=== PATIENT | female | born 1955 | race Caucasian/White ===

== ENCOUNTER 2018-08-04 19:05 | Emergency (ER) | payer MEDICARE, OTHER ==
--- OUTSIDE RECORDS SUMMARY | 2018-08-04 19:07 | XMS REPORT | Clinical Summary ---
:1955 Author Organization [facility] Address [address] [place] [address] Care Team Providers Name Role Phone Vinod Robysri Molina Primary Care Provider Unavailable Allergies Active Allergy Reactions Severity Noted Date Comments Amitriptyline Other (See Comments) 08/14/2016 Gets really depressed Gabapentin Other (See Comments) 08/14/2016 Gets really depressed Medications Medication Sig Dispensed Refills Start Date End Date Status acetaminophen (TYLENOL) Take 650 mg by 0 Active 325 MG tablet mouth every 6 (six) hours as needed for Pain. Active Problems Problem Noted Date Myelopathy 08/24/2016 Cervical spinal stenosis 08/24/2016 Pre-op testing 08/24/2016 Social History Tobacco Use Types Packs/Day Years Used Date Former Smoker 1 14 Quit: 08/30/2015 Alcohol Use Drinks/Week oz/Week Comments No Sex Assigned at Date Recorded Not on file Job Start Date Occupation Industry Not on file Not on file Not on file Travel History Travel Start Travel End No recent travel history available. Last Filed Vital Signs Not on file Plan of Treatment Not on file Implants Implanted Type Area Beef Ribber Device Shelf Model / Serial Identifier Expiration / Lot Date Matrix Floseal Hemo W/O Ndl 10 [id number] - [id number] Cement/Fi N/A: Spine SCHOFIELD:BIOSCI 12/14/2017 [id number] / Implanted: Qty: 2 on 08/24/2016 by Abdullahi Carrizales MD ller/Adhe Cervical / sive [id number] Optium Dbm Putty Spine N/A: Spine LIFENET 03/06/2019 [id number] / Implanted: Qty: 1 on 08/24/2016 by Boris Barry MD Cervical / [id number] Spacer Vert [id number] - [id number] Spine N/A: Spine ORTHOFIX 12/14 [id number] / Implanted: Qty: 1 on 08/24/2016 by Boris Barry MD Cervical INTL: ORTHOFIX / [id number] Spacer Vert [id number] - [id number] Spine N/A: Spine ORTHOFIX 2020 [id number] / Implanted: Qty: 1 on 08/24/2016 by Borsi Barry MD Cervical INTL: ORTHOFIX / [id number] Plt Aviator 30mm Lev2 [id number] - [id number] Spine N/A: Spine JARED:STRYKE [id number] / Implanted: Qty: 1 on 08/24/2016 by Boris Barry MD Cervical R SPINE / [id number] Vsd Screw Spine N/A: Spine JARED [id number] / Implanted: Qty: 1 on 08/24/2016 by Boris Barry MD Cervical / [id number] Tissue Nucell Med W/Matrix Nc-1001 - [id number] Tissue N/A: Spine NUTECH MED 01/16/2017 NC-1001 / Implanted: Qty: 1 on 08/24/2016 by Boris Barry MD Graft/Sub Cervical / stitute [id number] Aero Cervical Cage System N/A: Spine JARED 11/27/2020 [id number] / Implanted: Qty: 1 on 08/24/2016 by Boris Barry MD Cervical / [id number] Results Not on fileafter 08/03/2017 Insurance Payer Benefit Plan / Subscriber ID Type Phone Address Group BLUE CROSS/BLUE BCBS ADV HMO xxxxxxxxxxxx [phone] [address] EXCHANGE [address] [place] [address] MEDICAID - MEDICAID [id number] xxxxxxxxxxxx Medicaid MEDICAID [facility] CHOICE Contracted CARE [place] (Home) [place] [address] Advance Directives For more information, please contact:[place] [address] [address] [place] [phone] Code Status Date Activated Date Inactivated Comments Full Code 08/24/2016 10:50 AM 08/26/2016 1:00 PM This code status was determined by: Patient
[2018-08-04] MEDS ORDERED: AZITHROMYCIN 250 MG TAB ONE (20:38)
[2018-08-04] MEDS ORDERED: HYDROCODONE/APAP 10/325 TAB ONE (20:39)
[2018-08-04] MEDS ORDERED: AMOX/K CLAV 875 MG TAB ONE (20:39)
[2018-08-04 21:13] LABS: Absolute Lymphocytes (CBC) 1.9 K/uL (0.7-4.9); Absolute Monocytes 0.5 K/uL (0.1-1.3); Absolute Neutrophil 7.6 K/uL (1.8-8.0); Basophils % 0.5 % (0-1.3); Hematocrit 41.5 % (36.0-45.0); Lymphocytes % 18.3 % (15.3-44.8); MCH 28.8 pg (27.0-35.0); MCV 85.4 fL (80-100); Monocytes % 5.2 % (3.3-12.3); RBC Red Blood Cell Count 4.85 M/uL (3.86-4.86)
[2018-08-04 21:25] LABS: Potassium 3.5 mmol/L (3.5-5.1)
--- NOTE | 2018-08-04 21:55 | EDPHYS ---
Physician Documentation [facility] Name: Yolande Welch Age: 63 yrs Sex: Female : 1955 Arrival Date: 08/04/2018 Time: 19:08 Bed 11 Private MD: ANANDA ZENG ED Physician Ramses Ellis HPI: 08/04 20:23 This 63 yrs old Female presents to ER via Ambulatory with complaints of Cat jmm Bite. 20:23 The patient was bitten on the left hand. Onset: The symptoms/episode began/occurred jmm acutely, this morning. Secondary to the bite the patient reports an abrasion. Associated signs and symptoms: Pertinent positives: erythema at site. Patient states her cat scratched her this morning with increased pain and swelling beginning this evening. Patient denies fever. . Historical: - Allergies: 19:39 Strawberries; wh - Home Meds: 19:39 None [Active]; wh - PMHx: 19:39 Spinal cord injury; wh - PSHx: 19:39 Back surgery; wh - Immunization history:: Adult Immunizations not up to date, Last tetanus immunization: < 10 years ago. - Social history:: Smoking status: Patient/guardian denies using tobacco, the patient reports quitting approximately 4 years ago. - Ebola Screening: : Patient negative for fever greater than or equal to 101.5 degrees Fahrenheit, and additional compatible Ebola Virus Disease symptoms Patient denies exposure to infectious person. ROS: 20:23 Constitutional: Negative for fever, chills, and weight loss, Cardiovascular: Negative jmm for chest pain, palpitations, and edema, Respiratory: Negative for shortness of breath, cough, wheezing, and pleuritic chest pain. 20:23 MS/extremity: Positive for erythema, pain. 20:23 Skin: Positive for erythema, swelling. 20:23 All other systems are negative. Exam: 20:23 Constitutional: This is a well developed, well nourished patient who is awake, alert, jmm and in no acute distress. Head/Face: atraumatic. Eyes: EOMI, no conjunctival erythema appreciated ENT: Moist Mucus Membranes Neck: Trachea midline, Supple Chest/axilla: Normal chest wall appearance and motion. Cardiovascular: Regular rate and rhythm. No edema appreciated Respiratory: Normal respirations, no respiratory distress appreciated Abdomen/GI: Non distended, soft Back: Normal ROM 20:23 Musculoskeletal/extremity: FROM appreciated to the left hand, Compartments are soft, < 2 sec dist cap refill, NVI, full radial pulse. 20:23 Skin: multiple abrasions noted to the dorsum of the left hand with erythema, TTP. No purulent drainage is appreciated. . 20:23 Neuro: Orientation: is normal, Mentation: is normal, Memory: is normal, Gait: is steady, at a normal pace. 20:23 Psych: Behavior/mood is pleasant, cooperative. Vital Signs: 19:36 BP 115 / 70; Pulse 86; Resp 18; Temp 98.4; wh 22:12 BP 107 / 85; Pulse 82; Resp 17; wh MDM: 20:22 Patient medically screened. [facility] 21:53 Data reviewed: vital signs, nurses notes. [facility] 22:05 Data reviewed: lab test result(s). [facility] 22:05 Counseling: I had a detailed discussion with the patient and/or guardian regarding: the [facility] historical points, exam findings, and any diagnostic results supporting the discharge/admit diagnosis, lab results, radiology results, the need for outpatient follow up, to return to the emergency department if symptoms worsen or persist or if there are any questions or concerns that arise at home. ED course: Labs unremarkable. Patient advised to follow up with PCP or hand in 1 to days. Given strict return precautions. Patient understood and agrees with the plan of care. . 08/04 20:23 Order name: CBC with Diff [facility] 08/04 20:23 Order name: BMP [facility] 08/04 20:23 Order name: Procalcitonin [facility] 08/04 21:25 Order name: CBC with Automated Diff; Complete Time: 21:27 [facility] 08/04 21:26 Order name: Basic Metabolic Panel; Complete Time: 21:27 [facility] 08/04 21:46 Order name: Procalcitonin; Complete Time: 21:49 [facility] 08/04 20:23 Order name: Saline Lock; Complete Time: 20:41 [facility] Administered Medications: 20:41 Drug: Augmentin 875 mg Route: PO; 21:18 Follow up: Response: No adverse reaction 20:41 Drug: AZITHromycin 500 mg Route: PO; 21:18 Follow up: Response: No adverse reaction 20:41 Drug: [place] 10 mg-325 mg 1 tabs Route: PO; 21:17 Follow up: Response: No adverse reaction 22:04 Drug: Tetanus-Diphtheria Toxoid Adult 0.5 ml {Digitizer Operator: [employer]. Exp: 10/04/2020. Lot #: [id number]. } Route: IM; Site: right deltoid; 22:12 Follow up: Response: No adverse reaction Disposition: 08/05 05:42 Co-signature as Attending Physician, Ramses Ellis MD I agree with the assessment and tw4 plan of care. Disposition: 08/04/18 21:54 Discharged to Home. Impression: Cat scratch. - Condition is Stable. - Discharge Instructions: Animal Bite, [id number]. - Prescriptions for Augmentin 875- 125 mg Oral Tablet - take 1 tablet by ORAL route every 12 hours for 10 days; 20 tablet. Ultracet 37.5- 325 mg Oral Tablet - take 1 tablet by ORAL route every 6 hours - for up to 5 days; do not exceed 8 tablets per day.; 12 tablet. Zithromax Z- Shine 250 mg Oral Tablet - take 1 tablet by ORAL route as directed for 5 days Day 1 - take two (2) tablets one time. Day 2, 3, 4 , 5 take one (1) tablet once daily.; 6 tablet. - Medication Reconciliation Form, Thank You Letter, Antibiotic Education, Prescription Opioid Use form. - Follow up: Tremayne Wren MD; When: 1 - 2 days; Reason: Recheck today's complaints, Continuance of care, Re-evaluation by your physician. Signatures: Dispatcher [employer] EDMS Kevin Canela PA PA jmm Habalo, Winsy Ramses Ellis MD MD tw4 Corrections: (The following items were deleted from the chart) 08/04 22:18 21:54 08/04/2018 21:54 Discharged to Home. Impression: Cat scratch. Condition is Stable. Forms are Medication Reconciliation Form, Thank You Letter, Antibiotic Education, Prescription Opioid Use. Follow up: Tremayne Wren; When: 1 - 2 days; Reason: Recheck today's complaints, Continuance of care, Re-evaluation by your physician. abby 08/05 02:38 08/04 21:53 Counseling: I had a detailed discussion with the patient and/or guardian abby regarding: the presence of at least one elevated blood pressure reading (>120/80) during this emergency department visit, lab results, the need for outpatient follow up, to return to the emergency department if symptoms worsen or persist or if there are any questions or concerns that arise at home, abby
--- NOTE | 2018-08-04 21:55 | ER ---
Nurse's Notes [facility] Name: Yolande Welch Age: 63 yrs Sex: Female : 1955 Arrival Date: 08/04/2018 Time: 19:08 Bed 11 Private MD: ANANDA ZENG Diagnosis: Cat scratch Presentation: 08/04 19:31 Presenting complaint: Patient states: states she was trying to reach for her cat that wh got stuck on her wheelchair when the cat scratch her hand multiple times this morning. Pt states cat had rabies shot. Pt last tetanus shot was in the 70s. Pt C/O throbbing pain in L hand from scratches 04/25. Transition of care: patient was not received from another setting of care. Onset of symptoms was August 04, 2018. Risk Assessment: Do you want to hurt yourself or someone else? Patient reports no desire to harm self or others. Initial Sepsis Screen: Does the patient meet any 2 criteria? No. Patient's initial sepsis screen is negative. Does the patient have a suspected source of infection? No. Patient's initial sepsis screen is negative. Care prior to arrival: None. 19:31 Method Of Arrival: Ambulatory 19:31 Acuity: ELLIE 3 Triage Assessment: 19:37 Bite description: NOt animal bite as stated by Pt. General: Appears in no apparent distress. Behavior is calm, cooperative, appropriate for age. Pain: Complains of pain in left hand Pain currently is 8 out of 10 on a pain scale. Quality of pain is described as throbbing, Pain began this morning. 20:44 Bite description: bite sustained to Pt not bitten by act but scratched by animal information: vaccination(s) is current. Historical: - Allergies: 19:39 Strawberries; - Home Meds: 19:39 None [Active]; - PMHx: 19:39 Spinal cord injury; - PSHx: 19:39 Back surgery; - Immunization history:: Adult Immunizations not up to date, Last tetanus immunization: < 10 years ago. - Social history:: Smoking status: Patient/guardian denies using tobacco, the patient reports quitting approximately 4 years ago. - Ebola Screening: : Patient negative for fever greater than or equal to 101.5 degrees Fahrenheit, and additional compatible Ebola Virus Disease symptoms Patient denies exposure to infectious person. Screenin:36 Abuse screen: Denies threats or abuse. Denies injuries from another. Nutritional wh screening: No deficits noted. Tuberculosis screening: No symptoms or risk factors identified. Fall Risk None identified. Assessment: 20:44 Derm: Skin is intact, Skin is pink, warm \T\ dry. normal. wh 21:12 General: Appears in no apparent distress. Behavior is calm, cooperative, appropriate wh for age. Pain: Complains of pain in left hand. 21:13 Pain: Complains of pain in left hand Pain currently is 8 out of 10 on a pain scale. wh Quality of pain is described as throbbing. 21:13 Neuro: Level of Consciousness is awake, alert, obeys commands, Oriented to person, wh place, time, situation, Appropriate for age. Cardiovascular: Heart tones S1 S2 Capillary refill < 3 seconds. Respiratory: Airway is patent Respiratory effort is even, unlabored, Respiratory pattern is regular, symmetrical, Breath sounds are clear bilaterally. GI: Abdomen is flat, non-distended. : No signs and/or symptoms were reported regarding the genitourinary system. EENT: No signs and/or symptoms were reported regarding the EENT system. Derm: Skin is intact, Skin is pink, warm \T\ dry. normal, Reports scratches on L hand from pet cat. Musculoskeletal: Pt uses a wheelchair. Vital Signs: 19:36 BP 115 / 70; Pulse 86; Resp 18; Temp 98.4; wh 22:12 BP 107 / 85; Pulse 82; Resp 17; wh ED Course: 19:08 Patient arrived in ED. am2 19:09 ANANDA ZENG is Private Physician. am2 19:24 [facility] 19:24 Ramses Ellis MD is Attending Physician. [facility] 19:31 Ezio Bradley is Primary Nurse. wh 19:34 Triage completed. wh 19:38 Arm band placed on right wrist. wh 19:40 Patient has correct armband on for positive identification. Call light in reach. Pulse wh ox on. NIBP on. 20:44 Inserted saline lock: 22 gauge in right antecubital area, using aseptic technique. Blood collected. 21:53 Tremayne Wren MD is Referral Physician. [facility] 22:11 No provider procedures requiring assistance completed. IV discontinued, intact, bleeding controlled, No redness/swelling at site. Administered Medications: 20:41 Drug: Augmentin 875 mg Route: PO; 21:18 Follow up: Response: No adverse reaction 20:41 Drug: AZITHromycin 500 mg Route: PO; 21:18 Follow up: Response: No adverse reaction 20:41 Drug: [place] 10 mg-325 mg 1 tabs Route: PO; 21:17 Follow up: Response: No adverse reaction 22:04 Drug: Tetanus-Diphtheria Toxoid Adult 0.5 ml {Machine Binding Folder: [employer]. Exp: 10/04/2020. Lot #: [id number]. } Route: IM; Site: right deltoid; 22:12 Follow up: Response: No adverse reaction Outcome: 21:54 Discharge ordered by . abby 22:11 Discharged to home ambulatory, with family. 22:11 Condition: improved 22:11 Discharge instructions given to patient, Instructed on discharge instructions, follow up and referral plans. no drinking with medication, no driving heavy equipment, medication usage, wound care, POC Animal bite/scratch Demonstrated understanding of instructions, follow-up care, medications, wound care, POC Prescriptions given X 3. 22:18 Patient left the ED. Signatures: Kevin Canela PA PA jmm Moreno, Amanda am2 Habalo, Winsy Corrections: (The following items were deleted from the chart) 22:18 21:13 Musculoskeletal: Range of motion: intact in all extremities, [facility] 22:26 19:31 Acuity: ELLIE 5 [facility]
[2018-08-04] MEDS ORDERED: TETANUS & DIPHTHERIA TOX,ADULT 0.5 ML VIAL ONE (22:03)
== END 2018-08-04 22:18 | disposition home or self-care (01) ==
LOC: ER 19:05
DX: S60.572A Other superficial bite of hand of left hand, initial encounter (principal); W55.03XA Scratched by cat, initial encounter; Y93.9 Activity, unspecified; Y92.9 Unspecified place or not applicable; Z23 Encounter for immunization; Z91.018 Allergy to other foods
CPT/HCPCS: 36415; 80048; 84145; 85025; 90714; 99284

== ENCOUNTER 2020-01-14 16:54 | Emergency (ER) | payer MEDICARE ==
[2020-01-14] MEDS ORDERED: ONDANSETRON 4 MG/2 ML VIAL ONE (18:03)
[2020-01-14] MEDS ORDERED: NA CHLORIDE 0.9% 1,000 ML ONE (18:03)
[2020-01-14] MEDS ORDERED: MORPHINE 2 MG/ML SYR ONE (18:03)
--- NOTE | 2020-01-14 18:07 | RAD REPORT ---
EXAM DESCRIPTION: RAD - Chest Single View - 01/14/2020 6:03 pm CLINICAL HISTORY: Abdominal distention;Pain Chest pain. COMPARISON: No comparisons FINDINGS: Portable technique limits examination quality. The lungs are grossly clear. The heart is normal in size. No displaced fractures. Cervical spine hard soliman plate. IMPRESSION: No acute intrathoracic process suspected.
[2020-01-14 18:21] LABS: ALT/SGPT 27 U/L (12-78); AST/SGOT 19 U/L (15-37); Albumin 3.7 g/dL (3.4-5.0); Alkaline Phosphatase 100 U/L (45-117); BUN Blood Urea Nitrogen 7 mg/dL (7-18); Bicarbonate 25 mmol/L (21-32); Bilirubin Direct < 0.1 mg/dL (0-0.2); Bilirubin Total 0.5 mg/dL (0.2-1.0); Glucose Level 107 mg/dL (74-106); Lipase 114 U/L (73-393); Magnesium 1.9 mg/dL (1.8-2.4); NT PRO-BNP 46 pg/mL (<125); Potassium 3.7 mmol/L (3.5-5.1); Protein, Total 7.4 g/dL (6.4-8.2); Sodium Level 137 mmol/L (136-145); Troponin (Emerg Dept Use Only) < 0.02 ng/mL (0.0-0.045)
[2020-01-14 18:31] LABS: Protime INR 0.97
[2020-01-14 18:34] LABS: Absolute Lymphocytes (CBC) 1.4 K/uL (0.7-4.9); Basophils % 0.5 % (0-1.3); Hematocrit 38.7 % (36.0-45.0); Lymphocytes % 16.8 % (15.3-44.8); MPV 8.4 fL (7.6-11.3); RBC Red Blood Cell Count 4.59 M/uL (3.86-4.86)
--- NOTE | 2020-01-14 19:18 | RAD REPORT ---
EXAM DESCRIPTION: CTAbdomen Pelvis W Contrast - 01/14/2020 7:03 pm CLINICAL HISTORY: Abdominal pain. Abd pain;Abdominal distention COMPARISON: No comparisons TECHNIQUE: Biphasic CT imaging of the abdomen and pelvis was performed with 100 ml non-ionic IV cont rast. All CT scans are performed using dose optimization technique as appropriate and may include automated exposure control or mA/KV adjustment according to patient size. FINDINGS: The lung bases are clear. Diffuse fatty liver is seen. Multiple stones are present in the gallbladder. The spleen, pancreas, ad renal glands and kidneys are within normal limits. Multiple renal cysts are present, largest on the r ight measuring 4.4 cm. No bowel obstruction, free air, free fluid or abscess. Prominent sigmoid diverticulosis is seen witho ut diverticulitis. The appendix is normal. No evidence of significant lymphadenopathy. Multilevel spondylosis of the lumbar spine is present. Prominent bilateral hip osteoarthritis, more s evere on the right. Urinary bladder is diffusely thickened. IMPRESSION: Cholelithiasis. Diffusely thickened urinary bladder wall. Suggest correlation for the possibility of cystitis.
--- NOTE | 2020-01-14 19:44 | ER ---
Nurse's Notes [facility] Name: Yolande Welch Age: 64 yrs Sex: Female : 1955 Arrival Date: 01/14/2020 Time: 17:00 Bed 8 Private MD: ANANDA ZENG Diagnosis: Dysuria;Abdominal tenderness-improved, resolved;Cholelithiasis;Low back pain-chronic Presentation: 01/13 17:09 Chief complaint: Patient states: Low back pain intermittent for a few weeks. More ll1 constant low back pain started today. + pain to abdominal area today. + nausea and diarrhea. No fever. + belching. Coronavirus screen: Proceed with normal triage. Patient denies a cough. Patient denies shortness of breath or difficulty breathing. Patient denies measured and/or subjective temperature greater than 100.4F prior to today's visit. Patient denies travel on a cruise ship or to a country the [facility] currently lists as an affected area. Patient denies contact with known and/or suspected case of COVID-19. Ebola Screen: Patient denies travel to an Ebola-affected area in the 21 days before illness onset. Initial Sepsis Screen: Does the patient meet any 2 criteria? No. Patient's initial sepsis screen is negative. Does the patient have a suspected source of infection? No. Patient's initial sepsis screen is negative. Risk Assessment: Do you want to hurt yourself or someone else? Patient reports no desire to harm self or others. Onset of symptoms was January 14, 2020. 17:09 Method Of Arrival: Wheelchair ll1 17:09 Acuity: ELLIE 3 ll1 Historical: - Allergies: 17:11 Strawberries; ll1 - PMHx: 17:11 spinal cord injury; ll1 - PSHx: 17:11 Back surgery; ll1 - Immunization history:: Adult Immunizations unknown. - Social history:: Patient/guardian denies using alcohol, street drugs, tobacco products, Smoking status: unknown. - Family history:: not pertinent. Screenin:07 Abuse screen: Denies threats or abuse. Denies injuries from another. Nutritional ph screening: No deficits noted. Tuberculosis screening: No symptoms or risk factors identified. Fall Risk No fall in past 12 months (0 pts). Secondary diagnosis (15 points) impaired mobility, IV access (20 points). Ambulatory Aid- None/Bed Rest/Nurse Assist (0 pts). Gait- Normal/Bed Rest/Wheelchair (0 pts) Mental Status- Oriented to own ability (0 pts). Total M[place] Fall Scale indicates Low Risk Score (25-44 pts). Fall prevention measures have been instituted. Side Rails Up X 2 Frequent Obs/Assesments occuring As available Patient and Family Educated on Fall Prevention Program and strategies. Assessment: 18:09 General: Appears in no apparent distress. uncomfortable, well groomed, Behavior is ph calm, cooperative, appropriate for age, Denies fever. Pain: Complains of pain in right lower quadrant Pain radiates to lumbar area. Neuro: Level of Consciousness is awake, alert, obeys commands, Oriented to person, place, time, situation. Cardiovascular: Capillary refill < 3 seconds in bilateral fingers Patient's skin is warm and dry. Respiratory: Airway is patent Respiratory effort is even, unlabored, Respiratory pattern is regular, symmetrical. GI: Reports lower abdominal pain, diarrhea, gaseousness, nausea. Derm: Skin is intact, is healthy with good turgor, Skin is pink, warm \T\ dry. Musculoskeletal: Circulation, motion, and sensation intact. Range of motion: intact in all extremities. Vital Signs: 17:09 BP 147 / 85; Pulse 79; Resp 18; Temp 98.2; Pulse Ox 97% ; Pain 8/10; ll1 18:11 BP 145 / 77; Pulse 76; Resp 18; Pulse Ox 97% on R/A; ph 19:58 BP 129 / 72; Pulse 75; Resp 15; Temp 98; Pulse Ox 99% ; Pain 2/10; rv ED Course: 16:46 Initial lab(s) drawn, by wy, sent to lab. Inserted saline lock: 20 gauge in right ph antecubital area, using aseptic technique. Blood collected. 17:00 Patient arrived in ED. mr 17:00 ANANDA ZENG is Private Physician. mr 17:05 Alexy Stafford MD is Attending Physician. [facility] 17:11 Triage completed. ll1 17:12 Arm band placed on Patient placed in an exam room, on a stretcher. ll1 17:52 Nadine Myers, THADDEUS is Primary Nurse. ph 18:03 XRAY Chest (1 view) In Process Unspecified. EDMS 18:08 Patient has correct armband on for positive identification. Bed in low position. Call ph light in reach. Side rails up X2. Pulse ox on. NIBP on. Door closed. Noise minimized. Warm blanket given. Pillow given. Head of bed elevated. 18:11 No provider procedures requiring assistance completed. ph 19:04 CT Abd/Pelvis - PO and IV Contrast In Process Unspecified. EDMS 19:41 Dez Jewell MD is Referral Physician. derick 19:58 IV discontinued, intact, bleeding controlled, No redness/swelling at site. Pressure rv dressing applied. Administered Medications: 18:03 Drug: NS 0.9% 1000 ml Route: IV; Rate: 1 bolus; Site: right antecubital; ph 19:57 Follow up: IV Status: Completed infusion; IV Intake: 500ml rv 18:03 Drug: Zofran (Ondansetron) 4 mg Route: IVP; Site: right antecubital; ph 18:50 Follow up: Response: No adverse reaction ph 18:04 Drug: morphine 2 mg Route: IVP; Site: right antecubital; ph 18:50 Follow up: Response: No adverse reaction ph 19:50 Drug: Rocephin 1 grams Route: IV; Rate: per protocol; Site: right antecubital; rv 19:57 Follow up: Response: No adverse reaction; IV Status: Completed infusion rv Intake: 19:57 IV: 500ml; Total: 500ml. rv Outcome: 19:43 Discharge ordered by MD. derick 19:58 Discharged to home ambulatory. rv 19:58 Condition: improved 19:58 Discharge instructions given to patient, Instructed on discharge instructions, follow up and referral plans. medication usage, Demonstrated understanding of instructions, follow-up care, medications, Prescriptions given X 4. 19:58 Patient left the ED. rv Signatures: Dispatcher [employer] ALFONSOMD Alexy Stafford MD MD cha Rivera, Suzy mr Nadine Myers RN RN Julio Lanza RN RN rv Lewis, Lynsay, RN RN ll1
--- NOTE | 2020-01-14 19:44 | EDPHYS ---
Physician Documentation [facility] Name: Yolande Welch Age: 64 yrs Sex: Female : 1955 Arrival Date: 01/14/2020 Time: 17:00 Bed 8 Private MD: ANANDA ZENG ED Physician Alexy Stafford HPI: 01/13 17:24 This 64 yrs old Female presents to ER via Wheelchair with complaints of Back derick Pain, Abdominal Pain. 17:24 The patient presents with pain that is chronic, and decreased range of motion. derick 17:25 The patient presents with abdominal pain in the upper abdomen, in the lower abdomen, derick abdominal distention. Onset: The symptoms/episode began/occurred today. The patient presents to the emergency department with nausea, vomiting. Onset: The symptoms/episode began/occurred 1 day(s) ago. Possible causes: unknown. The symptoms are aggravated by nothing. The symptoms are alleviated by nothing. remaining still. The symptoms are located in the lumbar area and sacrum. Onset: The symptoms/episode began/occurred today. The pain radiates to the lumbar area and sacrum. Associated signs and symptoms: Pertinent positives: abdominal pain, nausea. The problem was sustained from unknown cause. Modifying factors: The patient symptoms are alleviated by nothing, the patient symptoms are aggravated by. Severity of symptoms: At their worst the symptoms were moderate, in the emergency department the symptoms are unchanged. Associated signs and symptoms: The patient has no apparent associated signs or symptoms. Historical: - Allergies: 17:11 Strawberries; ll1 - PMHx: 17:11 spinal cord injury; ll1 - PSHx: 17:11 Back surgery; ll1 - Immunization history:: Adult Immunizations unknown. - Social history:: Patient/guardian denies using alcohol, street drugs, tobacco products, Smoking status: unknown. - Family history:: not pertinent. ROS: 17:25 Constitutional: Negative for fever, chills, and weight loss, Eyes: Negative for injury, derick pain, redness, and discharge, ENT: Negative for injury, pain, and discharge, Neck: Negative for injury, pain, and swelling, Cardiovascular: Negative for chest pain, palpitations, and edema, Respiratory: Negative for shortness of breath, cough, wheezing, and pleuritic chest pain, Back: Negative for injury and pain, : Negative for injury, bleeding, discharge, and swelling, MS/Extremity: Negative for injury and deformity, Skin: Negative for injury, rash, and discoloration, Neuro: Negative for headache, weakness, numbness, tingling, and seizure, Psych: Negative for depression, anxiety, suicide ideation, homicidal ideation, and hallucinations, Allergy/Immunology: Negative for hives, rash, and allergies, Endocrine: Negative for neck swelling, polydipsia, polyuria, polyphagia, and marked weight changes, Hematologic/Lymphatic: Negative for swollen nodes, abnormal bleeding, and unusual bruising. 17:25 Abdomen/GI: Positive for abdominal pain, nausea, of the right upper quadrant, left upper quadrant, right lower quadrant and left lower quadrant. Exam: 17:25 Constitutional: This is a well developed, well nourished patient who is awake, alert, derick and in no acute distress. Head/Face: Normocephalic, atraumatic. Eyes: Pupils equal round and reactive to light, extra-ocular motions intact. Lids and lashes normal. Conjunctiva and sclera are non-icteric and not injected. Cornea within normal limits. Periorbital areas with no swelling, redness, or edema. ENT: Nares patent. No nasal discharge, no septal abnormalities noted. Tympanic membranes are normal and external auditory canals are clear. Oropharynx with no redness, swelling, or masses, exudates, or evidence of obstruction, uvula midline. Mucous membranes moist. Neck: Trachea midline, no thyromegaly or masses palpated, and no cervical lymphadenopathy. Supple, full range of motion without nuchal rigidity, or vertebral point tenderness. No Meningismus. Chest/axilla: Normal chest wall appearance and motion. Nontender with no deformity. No lesions are appreciated. Cardiovascular: Regular rate and rhythm with a normal S1 and S2. No gallops, murmurs, or rubs. Normal PMI, no JVD. No pulse deficits. Respiratory: Lungs have equal breath sounds bilaterally, clear to auscultation and percussion. No rales, rhonchi or wheezes noted. No increased work of breathing, no retractions or nasal flaring. Back: No spinal tenderness. No costovertebral tenderness. Full range of motion. Female : Normal external genitalia. Skin: Warm, dry with normal turgor. Normal color with no rashes, no lesions, and no evidence of cellulitis. MS/ Extremity: Pulses equal, no cyanosis. Neurovascular intact. Full, normal range of motion. Neuro: Awake and alert, GCS 15, oriented to person, place, time, and situation. Cranial nerves II-XII grossly intact. Motor strength 5/5 in all extremities. Sensory grossly intact. Cerebellar exam normal. Normal gait. Psych: Awake, alert, with orientation to person, place and time. Behavior, mood, and affect are within normal limits. 17:25 Abdomen/GI: Inspection: distension, Bowel sounds: normal. 17:25 Back: ROM is painful, normal spinal alignment noted, CVA tenderness, is absent. 18:54 ECG was reviewed by the Attending Physician. [facility] Vital Signs: 17:09 BP 147 / 85; Pulse 79; Resp 18; Temp 98.2; Pulse Ox 97% ; Pain 8/10; ll1 18:11 BP 145 / 77; Pulse 76; Resp 18; Pulse Ox 97% on R/A; ph 19:58 BP 129 / 72; Pulse 75; Resp 15; Temp 98; Pulse Ox 99% ; Pain 2/10; rv MDM: 17:05 Patient medically screened. [facility] 17:28 Differential diagnosis: Nonspecific abd pain, cholecystitis, pancreatitis, derick diverticulitis, gastroenteritis, Abdominal Aortic Aneurysm Cholelithiasis chronic back pain, Obesity Peptic Ulcer cholecystitis, Cholelithiasis, diverticulitis. 17:29 Data reviewed: vital signs, nurses notes, lab test result(s), EKG, radiologic studies, [facility] CT scan, plain films. 18:46 Data interpreted: body and frame technician: rate is 76 beats/min, rhythm is normal sinus rhythm, [facility] Pulse oximetry: on room air is 97 %. Test interpretation: by ED physician or midlevel provider: ECG, plain radiologic studies. Counseling: I had a detailed discussion with the patient and/or guardian regarding: the historical points, exam findings, and any diagnostic results supporting the discharge/admit diagnosis, lab results, radiology results. ED course: abd pain abd back pain , bowel sounds hypoactive, suspect bowel obstruction. 19:46 ED course: results explained to pt, dr krishnan notified , and will follow up on the [facility] gallbladder, a low fat diet explained. 01/13 17:24 Order name: Basic Metabolic Panel; Complete Time: 18:42 [facility] 01/13 17:24 Order name: CBC with Diff; Complete Time: 19:36 [facility] 01/13 17:24 Order name: LFT's; Complete Time: 18:42 [facility] 01/13 17:24 Order name: Magnesium; Complete Time: 18:42 derick 01/13 17:24 Order name: NT PRO-BNP; Complete Time: 18:42 01/13 17:24 Order name: PT-INR; Complete Time: 19:36 [facility] 01/13 17:24 Order name: Troponin (emerg Dept Use Only); Complete Time: 18:42 [facility] 01/13 17:24 Order name: XRAY Chest (1 view); Complete Time: 18:42 [facility] 01/13 17:24 Order name: Lipase; Complete Time: 18:42 [facility] 01/13 17:24 Order name: CT Abd/Pelvis - PO and IV Contrast; Complete Time: 19:36 [facility] 01/13 19:04 Order name: Urine Dipstick--Ancillary (enter results) 01/13 17:24 Order name: EKG; Complete Time: 17:25 [facility] 01/13 17:24 Order name: Cardiac monitoring; Complete Time: 18:04 [facility] 01/13 17:24 Order name: EKG - Nurse/Tech; Complete Time: 18:34 [facility] 01/13 17:24 Order name: IV Saline Lock; Complete Time: 17:55 [facility] 01/13 17:24 Order name: Labs collected and sent; Complete Time: 17:55 [facility] 01/13 17:24 Order name: O2 Per Protocol; Complete Time: 17:55 [facility] 01/13 17:24 Order name: O2 Sat Monitoring; Complete Time: 17:55 [facility] 01/13 17:24 Order name: Urine Dipstick-Ancillary (obtain specimen); Complete Time: 19:05 [facility] EC:54 Rate is 76 beats/min. Rhythm is regular. QRS Arbela is Normal. UT interval is normal. QRS derick interval is prolonged. QT interval is normal. No Q waves. T waves are Normal. No ST changes noted. Clinical impression: NSR w/ Non-specific ST/T Changes. Interpreted by me. Reviewed by me. Administered Medications: 18:03 Drug: NS 0.9% 1000 ml Route: IV; Rate: 1 bolus; Site: right antecubital; ph 19:57 Follow up: IV Status: Completed infusion; IV Intake: 500ml rv 18:03 Drug: Zofran (Ondansetron) 4 mg Route: IVP; Site: right antecubital; ph 18:50 Follow up: Response: No adverse reaction ph 18:04 Drug: morphine 2 mg Route: IVP; Site: right antecubital; ph 18:50 Follow up: Response: No adverse reaction ph 19:50 Drug: Rocephin 1 grams Route: IV; Rate: per protocol; Site: right antecubital; rv 19:57 Follow up: Response: No adverse reaction; IV Status: Completed infusion rv Disposition: 01/14/20 19:43 Discharged to Home. Impression: Dysuria, Abdominal tenderness - improved, resolved, Cholelithiasis, Low back pain - chronic. - Condition is Stable. - Discharge Instructions: Abdominal Pain, Adult, Back Pain, Adult, Dysuria, Musculoskeletal Pain, Cholelithiasis, Cholelithiasis, Hpve-is-Odnd, Abdominal Pain, Adult, Wjiu-ay-Tpcl, Back Pain, Adult, Ezic-sv-Dcaa. - Prescriptions for Bentyl 20 mg Oral Tablet - take 1 tablet by ORAL route every 6 hours As needed; 20 tablet. Keflex 500 mg Oral Capsule - take 1 capsule by ORAL route every 6 hours for 7 days; 28 capsule. Pepcid 20 mg Oral Tablet - take 1 tablet by ORAL route every 12 hours for 10 days; 20 tablet. Zofran 4 mg Oral Tablet - take 1 tablet by ORAL route every 12 hours As needed; 20 tablet. - Medication Reconciliation Form, Thank You Letter, Antibiotic Education, Prescription Opioid Use form. - Follow up: Private Physician; When: 2 - 3 days; Reason: Recheck today's complaints, Continuance of care, Re-evaluation by your physician. Follow up: Dez Krishnan MD; When: 2 - 3 days; Reason: Recheck today's complaints, Re-evaluation by your physician. - Problem is new. - Symptoms have improved. Signatures: Dispatcher [employer] EDMS Alexy Stafford MD MD cha Hall, Patricia, RN RN Julio Rosario RN RN Espinoza Lange RN RN ll1 Corrections: (The following items were deleted from the chart) 19:58 19:43 01/14/2020 19:43 Discharged to Home. Impression: Dysuria; Abdominal tenderness - rv improved, resolved; Cholelithiasis; Low back pain - chronic. Condition is Stable. Forms are Medication Reconciliation Form, Thank You Letter, Antibiotic Education, Prescription Opioid Use. Follow up: Private Physician; When: 2 - 3 days; Reason: Recheck today's complaints, Continuance of care, Re-evaluation by your physician. Follow up: Dez Krishnan; When: 2 - 3 days; Reason: Recheck today's complaints, Re-evaluation by your physician. Problem is new. Symptoms have improved. derick
[2020-01-14] MEDS ORDERED: CEFTRIAXONE/SWI 1gm 1 GM/10 ML SYR ONE (19:54)
[2020-01-14 20:11] VITALS: BP 129/72; TEMP 98; O2SAT 99
[2020-01-14 20:27] LABS: Urine Blood TRACE (NEG); Urine Glucose NEGATIVE (NEG); Urine Protein NEGATIVE (NEG); Urine Specific Gravity 1.015 (1.005-1.030)
--- NOTE | 2020-01-15 09:48 | EKG ---
Test Date: 2020-01-14 Test Time: 18:49:50 Tile Setter: IRAIS MEASUREMENT RESULTS: Intervals: Rate: 76 NM: 158 QRSD: 88 QT: 436 QTc: 490 [place]: P: 80 NM: 158 QRS: -2 T: 90 INTERPRETIVE STATEMENTS: Normal sinus rhythm Prolonged QT Abnormal ECG No previous ECG available for comparison Electronically Signed On 01-15-20 09:47:20 CDT by Sourav Michel
== END 2020-01-14 19:58 | disposition home or self-care (01) ==
LOC: ER 16:54
DX: K80.20 Calculus of gallbladder without cholecystitis without obstruction (principal); M54.5 Low back pain; Z91.018 Allergy to other foods
CPT/HCPCS: 96361; 93005; 85025; 80048; 36415; 83735; 85610; 80076; 81003; 84484; 83690; 83880; 74177; 71045; 96375; 96374; 99284; Q9967; J2270; J0696; J7030; J2405

== ENCOUNTER 2020-06-27 07:30 | Day surgery (SDC) | payer MEDICARE ==
--- OUTSIDE RECORDS SUMMARY | 2020-06-27 07:55 | XMS REPORT ---
:1955 Author Organization [employer] Care Team Providers Name Role Phone Menard, Na Provider Role Unavailable Allergies, Adverse Reactions, Alerts Substance Reaction Event Type N.K.D.A. Info Not Available Non Drug Allergy Problems Problem Type Condition Code Onset Dates Condition Statu s Assessment History of fracture of right hip Z87.81 Active Assessment Primary osteoarthritis of both knees M17.0 Active Assessment Primary osteoarthritis of both hips M16.0 Active Assessment Vitamin D deficiency E55.9 Active Assessment Blood tests for routine general Z00.00 Active physical examination Problem Gallstones K80.20 Active Problem Primary osteoarthritis of both knees M17.0 Active Problem Vitamin D deficiency E55.9 Active Assessment Gallstones K80.20 Active Assessment Primary osteoarthritis involving M89.49 Active multiple joints Problem Primary osteoarthritis of both hips M16.0 Active Medications Medication Code Code Instructions Start End Status Dosage System Date Date Biotin [facility] 08827844944 91070 MCG Orally Active 1 t ablet Once a day Linda Root ND 91826444816 550 MG Orally Active as directed Turmeric ND 20897118921 500 MG Orally Active as di rected Curcumin Results No Known Results Summary Purpose eClinicalWorks Submission
--- OUTSIDE RECORDS SUMMARY | 2020-06-27 07:55 | XMS REPORT | Clinical Summary ---
:1955 Author Organization [facility] Address [address] [place] [address] Care Team Providers Name Role Phone Jesse Brock MD Primary Care Provider Allergies Active Allergy Reactions Severity Noted Date Comments Amitriptyline Other (See Comments) 08/14/2016 Gets r eally depressed Gabapentin Other (See Comments) 08/14/2016 Gets re ally depressed Medications Medication Sig Dispensed Refills Start Date End Date Status acetaminophen (TYLENOL) Take 650 mg by 0 Active 325 MG tablet mouth every 6 (six) hours as needed for Pain. Active Problems Problem Noted Date Myelopathy 08/24/2016 Cervical spinal stenosis 08/24/2016 Pre-op testing 08/24/2016 Social History Tobacco Use Types Packs/Day Years Used Date Former Smoker 1 14 Quit: 08/30/20 15 Alcohol Use Drinks/Week oz/Week Comments No Sex Assigned at Date Recorded Not on file Last Filed Vital Signs Not on file Plan of Treatment Not on file Implants Implanted Type Area Field Ring Assembler Device Shelf Model / Identifier Expiration Serial / Date Lot Matrix Floseal Hemo W/O Ndl 10 [id number] - [id number] Cement/Fi N/A: Spine SCHOFIELD:BIOSCI 12/14/2017 [id number] / Implanted: Qty: 2 on 08/24/2016 by Abdullahi Carrizales MD at [facility] ller/Adhe Cervical / sive [id number] Optium Dbm Putty Spine N/A: Spine LIFENET 03/06/2019 T [id number] / Implanted: Qty: 1 on 08/24/2016 by Boris Barry MD at [facility] Cervical / [id number] Description:[id number] Spacer Vert [id number] - [id number] Spine N/A: Spine ORTHOFI X 12/14/2020 [id number] / Implanted: Qty: 1 on 08/24/2016 by Boris Barry MD at [facility] Cervical INTL:ORTHOFIX / [id number] Spacer Vert [id number] - [id number] Spine N/A: Spine ORTHOFIX 01/13/2021 [id number] / Implanted: Qty: 1 on 08/24/2016 by Boris Barry MD at [facility] Cervical INTL:ORTHOFIX / [id number] Plt Aviator 30mm [id number] [id number] - [id number] Spine N/A: Spine STRYKE R:JARED [id number] / Implanted: Qty: 1 on 08/24/2016 by Boris Barry MD at [facility] Cervical SPINE / [id number] Vsd Screw Spine N/A: Spine JARED [id number] / Implanted: Qty: 1 on 08/24/2016 by Boris Barry MD at [facility] Cervical / [id number] Tissue Nucell Med W/Matrix Nc-1001 - [id number] Tissue N/A: Spine NUTECH MED 01/16/2017 [id number] / Implanted: Qty: 1 on 08/24/2016 by Boris Barry MD at [facility] Graft/Subst Cervical / itute [id number] Description:[id number] Aero Cervical Cage System N/A: Spine Cervical JARED 11/27/2020 [id number] / Implanted: Qty: 1 on 08/24/2016 by Boris Barry MD at [facility] / [id number] Results Not on fileafter 06/27/2019 Insurance Payer Benefit Plan Subscriber ID Effective Phone Address Typ e / Group Dates BLUE BCBS ADV HMO [id number] 2015-Pres [phone] [address]/BLUE EXCHANGE ent [id number] [place] [address] MEDICAID - MEDICAID [id number] 2016-Pres Me dicaid MEDICAID MGD [facility] ent Contr acted CARE CHOICE Advance Directives For more information, please contact: [phone] Code Status Date Activated Date Inactivated Comments Full Code 08/24/2016 10:50 AM 08/26/2016 1:00 PM This code status was determined by: Patient
--- OUTSIDE RECORDS SUMMARY | 2020-06-27 07:55 | XMS REPORT | Continuity of Care Document ---
:1955 Author Organization [facility] t Address [address] [place] [address] Care Team Providers Name Role Phone Jesse Brock MD Primary Care Physician Problems Condition Condition Condition Status Onset Resolution Last Treating Co mments Source Name Details Category Date Date Treatment Clinician Date Myelopathy Myelopathy Disease Active 2015-[address] [facility] Cervical Cervical Disease [facility] Pre-op Pre-op Disease Active 2015-[address] [facility] testing testing [facility] History of History of Diagnosis Active [facility] fracture fracture [facility] of right of right [facility] a hip hip l [facility]pat[facility] ent Clinics Primary Primary Problem Active [facility] osteoarthr osteoarthr Janny kes - itis of itis of Memoria both knees both knees l Outpati ent Clinics Primary Primary Problem Active [facility] osteoarthr osteoarthr Janny kes - itis of itis of [facility]oria both hips both hips l Outpati ent Clinics Vitamin D Vitamin D Problem Active [facility] deficiency deficiency Janny k[facility] - [facility] Blood Blood Diagnosis Active [facility] tests for tests for [facility] - routine routine Memoria general general l physical physical Outpat i examinatio examinatio en t n n Clinics Gallstones Gallstones Diagnosis Active [facility] Primary Primary Diagnosis Active [facility] osteoarthr osteoarthr [facility]anny kes - itis itis [facility]oria involving involving l multiple multiple Outpat i joints joints ent Clinics Allergies, Adverse Reactions, Alerts Allergy Allergy Status Severity Reaction(s) Onset Inactive Treating Comm ents Source Name Type Date Date Clinician Amitript Drug Active Other (See 2015-[address] yline [facility] Comments) 10-14 [facility] Gabapent Drug Active Other (See 2015-[address] in [facility] Comments) 10-14 [facility] Social History Social Habit Start Date Stop Date Quantity Comments Source Sex Assigned At [facility] Cigarettes smoked 2016-08-29 2016-08-29 [facility] Lusong - current (pack per 00:00:00 00:00:00 [facility] Center day) - Reported Cigarette 2016-08-29 2016-08-[address] [facility] [address] [place] - pack-years 00:00:00 00:00:00 [facility] Alcohol intake 2016-08-29 2016-08-29 Current [facility] St Lexa es - 00:00:00 00:00:00 non-drinker of Medical Ce nter alcohol (finding) History of tobacco 2015-08-30 [facility] use [facility] Smoking Status Start Date Stop Date Source Former smoker 2016-08-29 00:00:00 2016-08-29 00:00:00 [facility] Medications Ordered Filled Start Stop Current Ordering Indication Dosage Frequency Signature Comments Components Source Medication Medication Date Date Medication? Clinician (SIG) Name Name acetaminoph 2015-09 Yes 650mg Take [address] en 2-11 mg by [facility] - (TYLENOL) 10:59: mouth Medical 325 MG 59 every 6 Center tablet (six) hours as needed for Pain. Biotin Biotin Yes Na Menard [address] [facility] Linda Root Linda Root Yes Na Menard as [facility] Turmeric Turmeric Yes Na Menard as [facility] Curcumin Curcumin [facility] Procedures This patient has no known procedures. Encounters Start End Encounter Admission Attending Care Care Encounter Source Date/Time Date/Time Type Type Clinicians Facility Department ID 2020-05-20 2020-05-20 [facility] [id number] 14:00:00 14:00:00 t [facility] Medicine Outpati ent Clinics Results This patient has no known results.
[2020-06-27] MEDS ORDERED: Ringers Lactate 1,000 ML IV ONE (07:59)
[2020-06-27] MEDS ORDERED: propofoL 200 MG/20 ML VIAL IV ONE (08:31)
[2020-06-27] MEDS ORDERED: LIDOCAINE 1% MPF 30 ML VIAL ONE (08:32)
[2020-06-27] MEDS ORDERED: GLYCOPYRROLATE 0.2 MG/ML SYR ONE (08:32)
--- NOTE | 2020-06-27 09:17 | ENDO RPT ---
[address], [id number] EGD PROCEDURE REPORT EXAM DATE: 06/27/2020 PATIENT NAME: Yolande Welch MR#: [id number] BIRTHDATE: 1955 ATTENDING: Dez Jewell DR STATUS: outpatient GLASS FURNACE TENDER: Kayden Cifuentes Tech and Nazanin QUINONES INDICATIONS: The patient is a 65 yr old Female here for an EGD due to mid epigastric abdominal pain PROCEDURE PERFORMED: EGD with biopsy for H. pylori MEDICATIONS: Per Anesthesia. TOPICAL ANESTHETIC: none CONSENT: The patient understands the risks and benefits of the procedure and understands that these risks include, but are not limited to: sedation, allergic reaction, infection, perforation and/or bleeding. Alternative means of evaluation and treatment include, among others: physical exam, x-rays, and/or surgical intervention. The patient elects to proceed with this endoscopic procedure. DESCRIPTION OF PROCEDURE: During intra-op preparation period all mechanical medical equipment was checked for proper function. Hand hygiene and appropriate measures for infection prevention was taken. Procedure, possible complications, and alternatives including but not limited to the possibility of bleeding, perforation, tear, infection, sepsis, need for surgery, need for blood transfusion, and anesthesia related complications were explained to the patient. After the risks, benefits and alternatives of the procedure were thoroughly explained, Informed consent was verified, confirmed and timeout was successfully executed by the treatment team. The patient was placed in the left lateral position. The patient was anesthetized with topical anesthesia. Through the anesthetized oropharyngeal area, the scope was passed without any difficulty. The [id number] ([id number]) and Pentax [id number] ([id number]) endoscope was introduced through the mouth and advanced to the third portion of the duodenum. Retroflexed views revealed no abnormalities. The gastroscope was then slowly withdrawn and removed. Bile reflux was found in the body and the antrum of the stomach. A biopsy for H. pylori was taken. Multiple erosions were found at the pylorus. A biopsy for H. pylori was taken. ADVERSE EVENTS: There were no complications. IMPRESSIONS: 1. Bile reflux was found in the body and the antrum of the stomach 2. Multiple erosions were found at the pylorus RECOMMENDATIONS: 1. acid suppression therapy 2. anti-reflux regimen 3. await biopsy results 4. follow-up: office 2 week(s) 5. avoid NSAIDS 6. follow-up of helicobacter pylori status, treat if indicated REPEAT EXAM: Dez Jewell DR eSigned: Dez Jewell DR 06/27/2020 9:16 AM cc: CPT CODES: ICD9 CODES: PATIENT NAME: Yuri Yolande HatfieldDavid MR#: [id number]
--- NOTE | 2020-06-27 09:20 | ENDO RPT ---
[address], [address] COLONOSCOPY PROCEDURE REPORT EXAM DATE: 06/27/2020 PATIENT NAME: Yolande Welch MR #: [id number] BIRTHDATE: 1955 ATTENDING: Dez Jewell DR STATUS: outpatient PROTEIN SPECIALIST: Kayden Marquis and Nazanin QUINONES INDICATIONS: The patient is a 65 yr old Female here for a colonoscopy due to colon cancer screening PROCEDURE PERFORMED: Colonoscopy with biopsy - cold polypectomy MEDICATIONS: Per Anesthesia. ESTIMATED BLOOD LOSS: None CONSENT: The patient understands the risks and benefits of the procedure and understands that these risks include, but are not limited to: sedation, allergic reaction, infection, perforation and/or bleeding. Alternative means of evaluation and treatment include, among others: physical exam, x-rays, and/or surgical intervention. The patient elects to proceed with this endoscopic procedure. DESCRIPTION OF PROCEDURE: During intra-op preparation period all mechanical medical equipment was checked for proper function. Hand hygiene and appropriate measures for infection prevention was taken. Procedure, possible complications, alternatives including, but not limited to possibility of bleeding, perforation, tear, infection, sepsis, need for surgery, need for blood transfusion, were explained to the patient. After the risks, benefits and alternatives of the procedure were thoroughly explained, Informed consent was verified, confirmed and timeout was successfully executed by the treatment team. The patient was placed in the left lateral position. A digital rectal exam was performed and revealed internal hemorrhoids. After appropriate level of anesthesia, the scope was passed. The EC-[id number] ([id number]) endoscope was introduced through the anus and advanced to the cecum, which was identified by both the appendix and ileocecal valve. The quality of the prep was fair. The instrument was then slowly withdrawn as the colon was fully examined. Scope withdrawal time was 9 minutes. COLON FINDINGS: A small smooth sessile polyp with a friable surface was found in the right colon. A biopsy was performed using cold forceps. Sample was obtained and sent to histology. There was severe diverticulosis noted throughout the entire examined colon with associated tortuosity, colonic spasm and petechiae. No bleeding was noted from the diverticulosis. Small internal hemorrhoids were found. Retroflexed views revealed no abnormalities. The scope was then completely withdrawn from the patient and the procedure terminated. ADVERSE EVENTS: There were no complications. IMPRESSIONS: 1. Small sessile polyp was found in the right colon; biopsy was performed using cold forceps 2. There was severe diverticulosis noted throughout the entire examined colon 3. Small internal hemorrhoids RECOMMENDATIONS: 1. avoid NSAIDS 2. await biopsy results 3. follow-up: office 2 week(s) 4. Monitor for any evidence of rectal bleeding. 5. See EGD report. 6. yearly hemoccult starting in 4 years 7. hemorrhoidal hygiene 8. increase dietary water 9. low fiber / diverticular diet RECALL: for Colonoscopy, pending biopsy results. Dez Jewell DR eSigned: Dez Jewell DR 06/27/2020 9:19 AM cc: CPT CODES: ICD9 CODES: PATIENT NAME: Yolande Welch MR#: [id number]
[2020-06-27 09:32] VITALS: TEMP 97.1
[2020-06-27 09:55] VITALS: BP 117/74; O2SAT 98
== END 2020-06-27 10:08 | disposition home or self-care (01) ==
LOC: OR 07:30 → DS 10:08
PROVIDERS: ATTEND Surgery
PROC: 0DB68ZX Excision of Stomach, Via Natural or Artificial Opening Endoscopic, Diagnostic (ICD-10-PCS; 2020-06-27)
PROC: 0DB48ZX Excision of Esophagogastric Junction, Via Natural or Artificial Opening Endoscopic, Diagnostic (ICD-10-PCS; 2020-06-27)
PROC: 0DBF8ZX Excision of Right Large Intestine, Via Natural or Artificial Opening Endoscopic, Diagnostic (ICD-10-PCS; principal; 2020-06-27 08:30)
PROC: 0DB98ZX Excision of Duodenum, Via Natural or Artificial Opening Endoscopic, Diagnostic (ICD-10-PCS; 2020-06-27 08:30)
DX: K29.50 Unspecified chronic gastritis without bleeding (principal); K21.00 Gastro-esophageal reflux disease with esophagitis, without bleeding; Z12.11 Encounter for screening for malignant neoplasm of colon; D12.2 Benign neoplasm of ascending colon; K57.30 Diverticulosis of large intestine without perforation or abscess without bleeding; K64.8 Other hemorrhoids; K80.20 Calculus of gallbladder without cholecystitis without obstruction; Z20.828 Contact with and (suspected) exposure to other viral communicable diseases
CPT/HCPCS: 88312; 88305; 45380; 43239; U0002; J2704; J7120

== ENCOUNTER 2020-12-12 16:21 | Emergency (ER) | payer MEDICARE, OTHER ==
--- OUTSIDE RECORDS SUMMARY | 2020-12-12 16:24 | XMS REPORT | Continuity of Care Document ---
:1955 Author Organization [facility] t Address [address] [place] [address] [place] [address] Care Team Providers Name Role Phone Jesse Brock MD Primary Care Physician Unavailable Problems Condition Condition Condition Status Onset Resolution Last Treating Co mments Source Name Details Category Date Date Treatment Clinician Date Myelopathy Myelopathy Disease Active 2015-[address] [facility] Cervical Cervical Disease [facility] stenosis [facility] Pre-op Pre-op Disease Active 2015-[address] testing testing 10[facility] Allergies, Adverse Reactions, Alerts Allergy Allergy Status [...] Quantity Comments Source Sex Assigned At [facility] Alcohol intake 2016-08-29 2016-08-29 Current [facility] es - 00:00:00 00:00:00 non-drinker of Medical Ce nter alcohol (finding) Cigarettes smoked 2016-08-29 2016-08-29 [facility] - current (pack per 00:00:00 00:00:00 [facility] day) - Reported Cigarette 2016-08-29 2016-08-[address] [facility] - pack-years 00:00:00 00:00:00 [facility] History of tobacco 2015-08-30 [facility] sm[facility] Smoking Status Start Date Stop Date Source Former smoker 2016-08-29 00:00:00 2016-08-29 00:00:[address] [facility] Medications Ordered Filled Start Stop Current [...] Menard [address] [facility] ent Clinics Linda Root Linda Root Yes Na Menard as [facility] ent Clinics Turmeric Turmeric Yes Na Menard as [facility] Curcumin Curcumin directed [facility] - [facility] ent Clinics Procedures This patient has no known procedures. Encounters Start End Encounter Admission Attending Care Care Encounter Source Date/Time Date/Time Type Type Clinicians Facility Department ID 2020-11-24 2020-11-24 [facility] [id number] 2020-09-29 2020-09-29 [facility] [id number] [facility] 2020-07-07 2020-07-07 [facility] [id number] [facility] 2020-07-07 2020-07-07 [facility] [id number] [facility] 2020-05-20 2020-05-20 [facility] [id number] [facility] Results This patient has no known results.
--- NOTE | 2020-12-12 18:33 | RAD REPORT ---
EXAM DESCRIPTION: RAD - Foot Left 3 View - 12/12/2020 6:21 pm CLINICAL HISTORY: PAIN COMPARISON: No comparisons FINDINGS: The bones are diffusely demineralized. Small plantar calcaneal spur. No acute fracture or dislocation is seen.
--- NOTE | 2020-12-12 18:39 | EDPHYS ---
Physician Documentation [facility] Name: Yolande Welch Age: 65 yrs Sex: Female : 1955 Arrival Date: 12/12/2020 Time: 16:22 Bed 16 Private MD: ED Physician Drea Tejada HPI: 12/12 23:33 This 65 yrs old Female presents to ER via Wheelchair with complaints of Foot kb Pain - swelling/discoloration. 23:33 The patient presents with an injury, pain, swelling, tenderness. The complaints affect kb the left foot. Context: resulted from pt fell out of wheelchair onto left foot on Saturday causing pain, swelling and bruising, the patient is not able to bear weight, the patient is not able to ambulate. Onset: The symptoms/episode began/occurred 3 day(s) ago. Modifying factors: The symptoms are alleviated by nothing, the symptoms are aggravated by nothing. Associated signs and symptoms: Pertinent positives: swelling. Severity of symptoms: At their worst the symptoms were mild, in the emergency department the symptoms are unchanged. The patient has not experienced similar symptoms in the past. The patient has not recently seen a physician. 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 - Social history:: Smoking status: Patient/guardian denies using tobacco, the patient reports quitting approximately 5 years ago. ROS: 23:30 Constitutional: Negative for fever, chills, and weight loss, Neuro: Negative for kb headache, weakness, numbness, tingling, and seizure. 23:30 MS/extremity: Positive for ecchymosis, pain, swelling, tenderness, of the left foot. 23:30 Skin: Positive for ecchymosis, swelling, of the left foot. Exam: 23:31 Constitutional: This is a well developed, well nourished patient who is awake, alert, kb and in no acute distress. Head/Face: Normocephalic, atraumatic. MS/ Extremity: Pulses equal, no cyanosis. Neurovascular intact. Full, normal range of motion. Neuro: Awake and alert, GCS 15, oriented to person, place, time, and situation. Moves all extremities. Normal gait. 23:31 Skin: Appearance: normal except for affected area, ecchymosis, noted on the, left foot, that are mild, swelling, noted on the left foot, that are moderate. Vital Signs: 16:46 BP 118 / 99; Pulse 73; Resp 16 S; Temp 97.1(TE); Pulse Ox 97% on R/A; Weight 90.72 kg ca1 (R); Height 6 ft. 0 in. (182.88 cm) (R); 17:45 BP 137 / 81; Pulse 81; Resp 16; Pulse Ox 99% on R/A; zb 19:00 BP 125 / 67; Pulse 66; Resp 18; Pulse Ox 96% on R/A; zb 16:46 Body Mass Index 27.12 (90.72 kg, 182.88 cm) ca1 MDM: 17:27 Patient medically screened. kb 23:30 Data reviewed: vital signs, nurses notes. Data interpreted: Pulse oximetry: on room air kb is 96 %. Interpretation: normal. Counseling: I had a detailed discussion with the patient and/or guardian regarding: the historical points, exam findings, and any diagnostic results supporting the discharge/admit diagnosis, radiology results, the need for outpatient follow up, a family practitioner, to return to the emergency department if symptoms worsen or persist or if there are any questions or concerns that arise at home. 12/12 17:02 Order name: Foot Left 3 View XRAY; Complete Time: 18:37 kb Administered Medications: No medications were administered Disposition: 12/13 18:45 Co-signature as Attending Physician, Drea Tejada MD. ma2 Disposition: 12/12/20 18:39 Discharged to Home. Impression: Contusion of left foot. - Condition is Stable. - Discharge Instructions: Foot Contusion, [id number]. - Medication Reconciliation Form, Thank You Letter, Antibiotic Education, Prescription Opioid Use form. - Follow up: Emergency Department; When: As needed; Reason: Worsening of condition. Follow up: Private Physician; When: 2 - 3 days; Reason: Recheck today's complaints, Continuance of care, Re-evaluation by your physician. Signatures: Dispatcher [employer] Annalisa Jean-Baptiste FNP-C FNP-Ckb Drea Tejada MD MD ma2 Gilma Chin RN RN ca1 Brown, Zipporah, RN RN zb Corrections: (The following items were deleted from the chart) 12/12 19:02 18:39 12/12/2020 18:39 Discharged to Home. Impression: Contusion of left foot. zb Condition is Stable. Forms are Medication Reconciliation Form, Thank You Letter, Antibiotic Education, Prescription Opioid Use. Follow up: Emergency Department; When: As needed; Reason: Worsening of condition. Follow up: Private Physician; When: 2 - 3 days; Reason: Recheck today's complaints, Continuance of care, Re-evaluation by your physician. kb
--- NOTE | 2020-12-12 18:39 | ER ---
Nurse's Notes [facility] Name: Yolande Welch Age: 65 yrs Sex: Female : 1955 Arrival Date: 12/12/2020 Time: 16:22 Bed 16 Private MD: Diagnosis: Contusion of left foot Presentation: 12/12 16:46 Chief complaint: Patient states: L foot bruising and swelling since Saturday. On ca1 Saturday fell off the wheelchair and landed on L foot. That's when it started. Coronavirus screen: Client denies travel out of the [place] in the last 14 days. At this time, the client does not indicate any symptoms associated with coronavirus-19. Ebola Screen: Patient negative for fever greater than or equal to 101.5 degrees Fahrenheit, and additional compatible Ebola Virus Disease symptoms Patient denies exposure to infectious person. Patient denies travel to an Ebola-affected area in the 21 days before illness onset. No symptoms or risks identified at this time. Initial Sepsis Screen: Does the patient meet any 2 criteria? No. Patient's initial sepsis screen is negative. Does the patient have a suspected source of infection? No. Patient's initial sepsis screen is negative. Risk Assessment: Do you want to hurt yourself or someone else? Patient reports no desire to harm self or others. Onset of symptoms was December 12, 2020. 16:46 Method Of Arrival: Wheelchair ca1 16:46 Acuity: ELLIE 4 ca1 Triage Assessment: 19:01 General: Behavior is calm. 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 - Social history:: Smoking status: Patient/guardian denies using tobacco, the patient reports quitting approximately 5 years ago. Screenin:14 Abuse screen: Denies threats or abuse. Denies injuries from another. Nutritional zb screening: No deficits noted. Tuberculosis screening: No symptoms or risk factors identified. Fall Risk Fall in past 12 months (25 points). Secondary diagnosis (15 points) impaired mobility, No IV (0 pts). Ambulatory Aid- None/Bed Rest/Nurse Assist (0 pts). Gait- Normal/Bed Rest/Wheelchair (0 pts) Mental Status- Oriented to own ability (0 pts). Total Murguia Fall Scale indicates No Risk (0-24 pts). Assessment: 17:30 General: Appears uncomfortable. Pain: Complains of pain in left foot Pain currently is zb 5 out of 10 on a pain scale. Neuro: Level of Consciousness is awake, alert, obeys commands, Oriented to person, place, time, situation, Moves all extremities. Full function Speech is normal, Cardiovascular: Capillary refill < 3 seconds Patient's skin is warm and dry. Respiratory: Airway is patent Respiratory effort is even, unlabored, Respiratory pattern is regular, symmetrical. GI: No signs and/or symptoms were reported involving the gastrointestinal system. Derm: Bruising that is dark purple, on left foot. Musculoskeletal: Range of motion: intact in all extremities, Swelling present in left foot. 17:47 Reassessment: x-ray at bedside. zb 18:00 Reassessment: left foot elevated for comfort. patient denies need for pain mediation at zb this time. 18:39 Reassessment: ECP at bedside. zb 18:59 Reassessment: Patient appears in no apparent distress at this time. Patient and/or zb family updated on plan of care and expected duration. Pain level reassessed. Patient is alert, oriented x 3, equal unlabored respirations, skin warm/dry/pink. patient left via wheel chair. no acute events. Vital Signs: 16:46 BP 118 / 99; Pulse 73; Resp 16 S; Temp 97.1(TE); Pulse Ox 97% on R/A; Weight 90.72 kg ca1 (R); Height 6 ft. 0 in. (182.88 cm) (R); 17:45 BP 137 / 81; Pulse 81; Resp 16; Pulse Ox 99% on R/A; zb 19:00 BP 125 / 67; Pulse 66; Resp 18; Pulse Ox 96% on R/A; zb 16:46 Body Mass Index 27.12 (90.72 kg, 182.88 cm) ca1 ED Course: 16:22 Patient arrived in ED. as 16:49 Triage completed. ca1 16:50 Arm band placed on right wrist. ca1 17:27 Annalisa Banerjee FNP-C is [facility]. kb 17:27 Drea Tejada MD is Attending Physician. kb 17:42 Elenita Rich, RN is Primary Nurse. zb 18:15 Patient has correct armband on for positive identification. Bed in low position. Call zb light in reach. Side rails up X 1. cardiac monitor on. Pulse ox on. NIBP on. Door closed. 18:22 Foot Left 3 View XRAY In Process Unspecified. EDMS 19:01 No provider procedures requiring assistance completed. Patient did not have IV access zb during this emergency room visit. Administered Medications: No medications were administered Outcome: 18:39 Discharge ordered by MD. kb 19:01 Discharged to home ambulatory. zb 19:01 Condition: stable 19:01 Discharge instructions given to patient, Instructed on discharge instructions, follow up and referral plans. Demonstrated understanding of instructions, follow-up care. 19:02 Patient left the ED. zb Signatures: Dispatcher [employer] EDVT Annalisa Banerjee FNP-C FNP-Ckb Martinez, Amelia as Gilma Chin RN RN ca1 Elenita Rich RN RN zb Corrections: (The following items were deleted from the chart) 18:16 17:30 Musculoskeletal: Range of motion: intact in all extremities, zb zb
[2020-12-12 20:59] VITALS: TEMP 97.1
[2020-12-12 21:01] VITALS: BP 125/67; O2SAT 96
== END 2020-12-12 19:02 | disposition home or self-care (01) ==
LOC: ER 16:21
DX: S90.32XA Contusion of left foot, initial encounter (principal); W05.0XXA Fall from non-moving wheelchair, initial encounter; Y93.9 Activity, unspecified; Y92.9 Unspecified place or not applicable; Z91.018 Allergy to other foods
CPT/HCPCS: 99284

== ENCOUNTER 2024-03-20 13:57 | Emergency (ER) | payer OTHER ==
[2024-03-20 14:47] LABS: Specific Gravity 1.005 (1.005-1.030); Urine Bilirubin NEGATIVE (Negative); Urine Blood Negative (Negative); Urine Clarity Clear (Clear); Urine Color Colorless (Yellow); Urine Glucose NEGATIVE (Negative); Urine Ketones NEGATIVE (Negative); Urine Microscopic Reflex YN NO UMIC; Urine Nitrite NEGATIVE (Negative); Urine Protein NEGATIVE (Negative); Urine Urobilinogen Normal (Normal)
[2024-03-20 14:50] LABS: Absolute Eosinophils 0.1 K/uL (0-0.5); Absolute Lymphocytes (CBC) 1.7 K/uL (0.7-4.9); Absolute Monocytes 0.4 K/uL (0.1-1.3); Absolute Neutrophil 7.4 K/uL (1.8-8.0); Basophils % 0.4 % (0-1.3); Eosinophils % 0.8 % (0-4.4); Hematocrit 40.7 % (36.0-45.0); Hemoglobin 13.6 g/dL (12.0-15.0); MCH 28.2 pg (27.0-35.0); MCHC 33.4 g/dL (32.0-36.0); MCV 84.5 fL (80-100); Monocytes % 3.9 % (3.3-12.3); Neutrophils % 76.9 % (41.7-73.7); Platelets 252 thou/uL (152-406); RBC Red Blood Cell Count 4.81 M/uL (3.86-4.86); Red Cell Distribution Width 14.2 % (12.1-15.2)
[2024-03-20] MEDS ORDERED: NA CHLORIDE 0.9% 500 ML ONE (14:54)
[2024-03-20] MEDS ORDERED: MECLIZINE HCL 12.5 MG TAB ONE (14:54)
[2024-03-20 14:59] LABS: PT Prothrombin Time 11.2 SECONDS (9.4-12.5); PTT, Activated Partial Thromb 32.4 SECONDS (24.3-36.9); Protime INR 1.02
--- NOTE | 2024-03-20 15:03 | RAD REPORT ---
EXAM DESCRIPTION: CT - Head Brain Wo Cont - 03/20/2024 2:50 pm CLINICAL HISTORY: Numbness COMPARISON: None TECHNIQUE: Computed axial tomography of the head was obtained. IV contrast was not requested. All CT scans are performed using dose optimization technique as appropriate and may include automated exposure control or mA/KV adjustment according to patient size. FINDINGS: An intracranial bleed is not seen The ventricles are normal in caliber No extra-axial fluid collection is noted. 4 millimeter low-density area inferior left basal ganglia probably either an old lacunar infarction o r prominent for Virchow-Fredrick space. Fluid within the sinuses/ mastoids is not seen. IMPRESSION: No acute intracranial abnormality is seen If patient's symptoms persist MRI of the brain would be recommended
[2024-03-20 15:08] LABS: ALT/SGPT 31 U/L (13-56); AST/SGOT 22 U/L (15-37); Albumin 3.7 g/dL (3.4-5.0); Alkaline Phosphatase 75 U/L (45-117); Anion Gap 5.5 mEq/L (5.0-15.0); BUN Blood Urea Nitrogen 12 mg/dL (7-18); Bicarbonate 28 mEq/L (21-32); Bilirubin Direct < 0.2 mg/dL (0-0.2); Bilirubin Indirect, Calculated 0.3 mg/dL (0.2-0.8); Bilirubin Total 0.5 mg/dL (0.2-1.0); Globulin 3.6 g/dL (2.3-3.5); Glomerular Filtration Rate 95 ml/min (=/>90); Glucose Level 102 mg/dL (74-106); Magnesium 1.9 mg/dL (1.6-2.4); Potassium 3.5 mEq/L (3.5-5.1); Protein, Total 7.3 g/dL (6.4-8.2); Sodium Level 140 mEq/L (136-145); Troponin High Sensitivity < 3.0 pg/mL (<58.9)
--- NOTE | 2024-03-20 15:13 | RAD REPORT ---
EXAM DESCRIPTION: CTHead angio03/20/2024 2:50 pm CLINICAL HISTORY: numbness COMPARISON: none TECHNIQUE: 100 cc Isovue [address] angiogram of the head was obtained. 3D MIPS reconstruction performed. All CT scans are performed using dose optimization technique as appropriate and may include automated exposure control or mA/KV adjustment according to patient size. FINDINGS: The basilar, anterior cerebral, middle cerebral and posterior cerebral arteries do not dem onstrate a significant stenosis origin right posterior cerebral artery distal internal carotid An aneurysm is not seen No large vessel occlusion IMPRESSION: No significant vascular abnormality is displayed
--- NOTE | 2024-03-20 15:13 | RAD REPORT ---
EXAM DESCRIPTION: Natty Angio03/20/2024 2:50 pm CLINICAL HISTORY: Numbness COMPARISON: None TECHNIQUE: 100 cc Isovue [address] angiogram of the neck was obtained. 3D MIPS reconstruction performed. All CT scans are performed using dose optimization technique as appropriate and may include automated exposure control or mA/KV adjustment according to patient size. FINDINGS: Visualized aortic arch and great vessels unremarkable Mild plaque within the common carotid, internal carotid and external carotid arteries bilaterally. Vertebral arteries unremarkable No dissection is seen. No high-grade stenosis Nascet crieria Mild stenosis 0 to 49 % Moderate stenosis 50-69% Severe stenosis 70-99% IMPRESSION: No significant vascular abnormality is displayed
--- NOTE | 2024-03-20 15:22 | RAD REPORT ---
EXAM DESCRIPTION: Ignacio Single View03/20/2024 2:58 pm CLINICAL HISTORY: Hypertension/chest pain COMPARISON: 2019 FINDINGS: The lungs appear clear of acute infiltrate. The heart is normal size IMPRESSION: No acute abnormalities displayed
--- NOTE | 2024-03-20 16:15 | RAD REPORT ---
EXAM DESCRIPTION: MRI - Brain Wo Cont - 03/20/2024 3:43 pm CLINICAL HISTORY: Numbness and dizziness COMPARISON: Head CT March 20, 2024 TECHNIQUE: Axial, sagittal, and coronal magnetic resonance images of the brain were obtained. FINDINGS: No significant abnormal signal within the brain Diffusion-weighted/ADC mapping does not reveal evidence of acute infarction. The ventricles are normal caliber. An extra-axial fluid collection is not noted. Fluid within the sinuses/mastoids is not seen IMPRESSION: No acute intracranial abnormality noted
--- NOTE | 2024-03-20 16:43 | ER ---
Nurse's Notes [facility] Name: Yolande Welch Age: 68 yrs Sex: Female : 1955 Arrival Date: 03/20/2024 Time: 13:57 Bed 17 Private MD: Diagnosis: Dizziness and giddiness Presentation: 03/20 14:08 Chief complaint: Patient states: High BP, dizzy, not feeling well started this AM. B ll1 legs numbness is higher than usual (into calf area). Coronavirus screen: Client denies travel out of the [place] in the last 14 days. At this time, the client does not indicate any symptoms associated with coronavirus-19. Ebola Screen: Patient denies travel to an Ebola-affected area in the 21 days before illness onset. Initial Sepsis Screen: Does the patient meet any 2 criteria? No. Patient's initial sepsis screen is negative. Does the patient have a suspected source of infection? No. Patient's initial sepsis screen is negative. Risk Assessment: Do you want to hurt yourself or someone else? Patient reports no desire to harm self or others. Onset of symptoms was March 20, 2024. 14:08 Method Of Arrival: Wheelchair ll1 14:08 Acuity: ELLIE 3 ll1 Triage Assessment: 14:14 General: Appears uncomfortable, Behavior is calm, cooperative, appropriate for age. ll1 General: Reports fatigue for. Pain: Denies pain. Neuro: Reports dizziness, elevated BP. GI: Reports bloating, gaseousness. Historical: - Allergies: 14:06 Strawberries; ll1 - PMHx: 14:06 spinal cord injury; Hypertensive disorder; Hypercholesterolemia; ll1 - Immunization history:: Adult Immunizations up to date. - Infectious Disease History:: Denies. - Social history:: Smoking status: Patient denies any tobacco usage or history of. - Family history:: not pertinent. - Hospitalizations: : No recent hospitalization is reported. Screenin:02 [facility] ED Fall Risk Assessment (Adult) History of falling in the last 3 months, rs5 including since admission No falls in past 3 months (0 pts) Confusion or Disorientation No (0 pts) Intoxicated or Sedated No (0 pts) Impaired Gait No (0 pts) Mobility Assist Device Used No (0 pt) Altered Elimination No (0 pt) Score/Fall Risk Level 0 - 2 = Low Risk Oriented to surroundings, Maintained a safe environment. Abuse screen: Denies threats or abuse. Nutritional screening: No deficits noted. Tuberculosis screening: No symptoms or risk factors identified. Assessment: 14:02 General: Appears in no apparent distress. uncomfortable, Behavior is calm, cooperative. rs5 Pain: Complains of pain in mid-epigastric Pain currently is 2 out of 10 on a pain scale. Quality of pain is described as pressure, Is continuous. Neuro: Level of Consciousness is awake, alert, obeys commands, Oriented to person, place, time, situation, Reports dizziness. Cardiovascular: Reports chest pressure Patient's skin is warm and dry. Respiratory: Airway is patent Respiratory effort is even, unlabored, Respiratory pattern is regular, symmetrical. GI: Abdomen is round non-distended, Abd is soft and non tender X 4 quads. : No signs and/or symptoms were reported regarding the genitourinary system. EENT: No signs and/or symptoms were reported regarding the EENT system. Derm: Skin is intact, Skin is pink, warm \T\ dry. Musculoskeletal: Range of motion: intact in all extremities. 14:20 Reassessment: Pt taken to CT via stretcher . rs5 15:17 Reassessment: pt back in room . rs5 15:17 Reassessment: Patient and/or family updated on plan of care and expected duration. Pain rs5 level reassessed. Patient is alert, oriented x 3, equal unlabored respirations, skin warm/dry/pink. 16:30 Reassessment: Patient and/or family updated on plan of care and expected duration. Pain rs5 level reassessed. Patient is alert, oriented x 3, equal unlabored respirations, skin warm/dry/pink. Patient states feeling better. Patient states symptoms have improved. 16:49 Reassessment: No changes from previously documented assessment. rs5 Vital Signs: 14:08 BP 167 / 76; Pulse 78; Resp 16; Temp 97.3; Pulse Ox 98% ; Weight 87.09 kg; Height 6 ft. ll1 0 in. ; Pain 0/10; 15:59 BP 155 / 79; Pulse 77; Resp 74; Pulse Ox 99% on R/A; rs5 16:45 BP 161 / 75; Pulse 71; Resp 17; Pulse Ox 99% on R/A; rs5 14:08 Body Mass Index 26.04 (87.09 kg, 182.88 cm) ll1 14:08 Pain Scale: Adult ll1 ED Course: 14:00 Patient arrived in ED. mg5 14:02 Patient has correct armband on for positive identification. Placed in gown. Bed in low rs5 position. Call light in reach. Side rails up X2. 14:02 No provider procedures requiring assistance completed. rs5 14:09 Vel Joy MD is Attending Physician. rn 14:09 Triage completed. ll1 14:09 Arm band placed on Patient placed in an exam room, on a stretcher. ll1 14:20 Doc Capone, THADDEUS is Primary Nurse. rs5 14:52 CT Head Brain wo Cont In Process Unspecified. EDMS 14:[address] In Process Unspecified. EDMS 14:52 Head angio In Process Unspecified. EDMS 15:00 Chest Single View XRAY In Process Unspecified. EDMS 15:45 Brain Wo Cont MRI In Process Unspecified. EDMS 17:00 IV discontinued, intact, bleeding controlled, No redness/swelling at site. Pressure rs5 dressing applied. Administered Medications: 15:22 Drug: NS 0.9% IV 500 ml IV at bolus once Route: IV; Rate: bolus; Site: left antecubital;rs5 16:00 Follow up: IV Status: Completed infusion; IV Intake: 500ml rs5 15:23 Drug: Meclizine PO 50 mg PO once Route: PO; rs5 16:10 Follow up: Response: No adverse reaction rs5 Medication: 15:24 VIS not applicable for this client. rs5 Intake: 16:00 IV: 500ml; Total: 500ml. rs5 Outcome: 16:43 Discharge ordered by . rn 17:00 Discharged to home ambulatory, rs5 17:00 Condition: stable rs5 17:00 Discharge instructions given to patient, family, Instructed on discharge instructions, follow up and referral plans. Demonstrated understanding of instructions, follow-up care, 17:03 Patient left the ED. al5 Signatures: Dispatcher [employer] Vel Shaikh MD MD rn Lewis, Lynsay, RN RN ll1 Doc Capone, THADDEUS TRAVIS rs5 Shanae Leija mg5 Maliha Yoo RN RN al5 Corrections: (The following items were deleted from the chart) 17:08 15:59 BP 155 / ???; Pulse 77bpm; Resp 74bpm; Pulse Ox 99% RA; rs5 rs5
--- NOTE | 2024-03-20 16:44 | EDPHYS ---
Physician Documentation [facility] Name: Yolande Welch Age: 68 yrs Sex: Female : 1955 Arrival Date: 03/20/2024 Time: 13:57 Bed 17 Private MD: ED Physician Vel Joy HPI: 03/20 14:50 This 68 yrs old Female presents to ER via Wheelchair with complaints of Dizziness, High rn Blood Pressure, Doesn't Feel Right. 14:50 The patient presents with dizziness, feeling faint, generalized weakness, rn lightheadedness, sense of spinning. Onset: The symptoms/episode began/occurred today. Modifying factors: The symptoms are alleviated by Burping, the symptoms are aggravated by standing up, changing position. Severity of symptoms: At their worst the symptoms were moderate in the emergency department the symptoms have improved. The patient has experienced similar episodes in the past. Patient reports last known normal was about 915 this morning, since then has had episodic dizziness that last for few minutes, feels a combination of lightheadedness like she is going to pass out and dizziness like trouble with equilibrium. Patient denies any symptoms at this time. States during the episode she feels like she has to burp and if she burps the symptoms resolve. Patient states has had this multiple times in the past. No fever. No head injury. No focal neurological deficit. Has chronic spinal problems and also reports tingling to bilateral lower extremities. No bowel or bladder issues.. Historical: - Allergies: 14:06 Strawberries; ll1 - PMHx: 14:06 spinal cord injury; Hypertensive disorder; Hypercholesterolemia; ll1 - Immunization history:: Adult Immunizations up to date. - Infectious Disease History:: Denies. - Social history:: Smoking status: Patient denies any tobacco usage or history of. - Family history:: not pertinent. - Hospitalizations: : No recent hospitalization is reported. ROS: 14:52 Constitutional: Negative for fever, chills, and weight loss, Eyes: Negative for injury, rn pain, redness, and discharge, Neck: Negative for injury, pain, and swelling, Cardiovascular: Negative for palpitations, and edema, Respiratory: Negative for shortness of breath, cough, wheezing, and pleuritic chest pain, Abdomen/GI: Negative for abdominal pain, diarrhea, and constipation, Back: Negative for injury and pain, MS/Extremity: Negative for injury and deformity, Skin: Negative for injury, rash, and discoloration, Neuro: Negative for headache, weakness, numbness, tingling, and seizure, Exam: 14:52 Constitutional: This is a well developed, well nourished patient who is awake, alert, rn and in no acute distress. Head/Face: Normocephalic, atraumatic. Eyes: Pupils equal round and reactive to light, extra-ocular motions intact. No nystagmus ENT: Dry mucous membranes Neck: Neck supple, no meningismus Cardiovascular: Regular rate and rhythm. No pulse deficits. Respiratory: No increased work of breathing, no retractions or nasal flaring. Abdomen/GI: Soft, non-tender MS/ Extremity: Pulses equal, no cyanosis. Neurovascular intact. Full, normal range of motion. Equal circumference. Neuro: Awake and alert, GCS 15, oriented to person, place, time, and situation. Cranial nerves II-XII grossly intact. Motor strength 5/5 in all extremities. Sensory grossly intact. Vital Signs: 14:08 BP 167 / 76; Pulse 78; Resp 16; Temp 97.3; Pulse Ox 98% ; Weight 87.09 kg; Height 6 ft. ll1 0 in. ; Pain 0/10; 15:59 BP 155 / 79; Pulse 77; Resp 74; Pulse Ox 99% on R/A; rs5 16:45 BP 161 / 75; Pulse 71; Resp 17; Pulse Ox 99% on R/A; rs5 14:08 Body Mass Index 26.04 (87.09 kg, 182.88 cm) ll1 14:08 Pain Scale: Adult ll1 MDM: 14:09 Patient medically screened. rn 16:41 Differential diagnosis: cardiac arrhythmia, CVA, generalized weakness, hypovolemia, rn idiopathic dizziness, near-syncope, TIA, vertigo. Data reviewed: vital signs, nurses notes, lab test result(s), EKG, radiologic studies, CT scan, MRI, and as a result, I will discharge patient. Care significantly affected by the following chronic conditions: Hypertension. Counseling: I had a detailed discussion with the patient and/or guardian regarding the historical points, exam findings, and any diagnostic results supporting the discharge/admit diagnosis, lab results, radiology results, the need for outpatient follow up, to return to the emergency department if symptoms worsen or persist or if there are any questions or concerns that arise at home. Response to treatment: the patient's symptoms have markedly improved after treatment, and as a result, I will discharge patient. Special discussion: I discussed with the patient/guardian in detail that at this point there is no indication for admission to the hospital. It is understood, however, that if the symptoms persist or worsen the patient needs to return immediately for re-evaluation. ED course: No acute findings and workup including CT angio head and neck and MRI brain. Patient feels much better after IV fluids and meclizine. Will discharge home with meclizine and PCP follow-up. I have personally reviewed all of the results, including but not limited to blood tests and imaging deemed necessary to safely discharge this patient at this time. All results given to and printed out for patient. I personally went over all the results with the patient and answered all questions. Patient will follow-up with PCP and or specialist as discussed. Return precautions given and understood.. 16:43 Special discussion: I have referred the patient to see his PCP for further evaluation rn of high blood pressure. 03/20 14:22 Order name: Basic Metabolic Panel; Complete Time: 15: rn 03/20 14:22 Order name: CBC with Diff; Complete Time: 15: rn 03/20 14:22 Order name: Hepatic Function; Complete Time: 15: rn 03/20 14:22 Order name: Magnesium; Complete Time: 15: rn 03/20 14:22 Order name: Protime (+inr); Complete Time: 15: rn 03/20 14:22 Order name: Ptt, Activated; Complete Time: 15: rn 03/20 14:22 Order name: Troponin High Sensitivity; Complete Time: 15:09 rn 03/20 14:22 Order name: Urinalysis w/ reflexes; Complete Time: 15: rn 03/20 14:56 Order name: CREATININE WHOLE BLOOD; Complete Time: 15:09 EDMS 03/20 14:22 Order name: CT Head Brain wo Cont; Complete Time: 15:09 rn 03/20 14:22 Order name: Chest Single View XRAY; Complete Time: 15:32 rn 03/20 14:22 Order name: Neck Angio CT; Complete Time: 15:21 rn 03/20 14:22 Order name: Brain Wo Cont MRI; Complete Time: 16:36 rn 03/20 14:28 Order name: Head angio; Complete Time: 15:21 EDMS 03/20 14:22 Order name: Cardiac monitoring; Complete Time: 14:51 rn 03/20 14:22 Order name: EKG - Nurse/Tech; Complete Time: 16:14 rn 03/20 14:22 Order name: IV Saline Lock; Complete Time: 14:51 rn 03/20 14:22 Order name: Labs collected and sent; Complete Time: 14:51 rn 03/20 14:22 Order name: NPO; Complete Time: 14:51 rn 03/20 14:22 Order name: O2 Per Protocol; Complete Time: 14:51 rn 03/20 14:22 Order name: O2 Sat Monitoring; Complete Time: 14:51 rn Administered Medications: 15:22 Drug: NS 0.9% IV 500 ml IV at bolus once Route: IV; Rate: bolus; Site: left antecubital;rs5 16:00 Follow up: IV Status: Completed infusion; IV Intake: 500ml rs5 15:23 Drug: Meclizine PO 50 mg PO once Route: PO; rs5 16:10 Follow up: Response: No adverse reaction rs5 Disposition Summary: 03/20/24 16:43 Discharge Ordered Notes: Location: Home rn Problem: new rn Symptoms: have improved rn Condition: Stable rn Diagnosis - Dizziness and giddiness rn Followup: rn - With: Private Physician - When: As needed - Reason: Recheck today's complaints, Re-evaluation by your physician Discharge Instructions: - Discharge Summary Sheet rn - Dizziness rn - Hypertension, Adult rn Forms: - Medication Reconciliation Form rn - 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 EDMS EDMS 14:23 14:22 CBC+H.LAB.BRZ ordered. EDMS EDMS 14: 14:22 HEPATIC FUNCTION+C.LAB.BRZ ordered. EDMS EDMS 14: 14:22 MAGNESIUM+C.LAB.BRZ ordered. EDMS EDMS 14: 14:22 PROTIME (+INR)+COAG.LAB.BRZ ordered. EDMS EDMS 14: 14:22 PTT, ACTIVATED+COAG.LAB.BRZ ordered. EDMS EDMS 14: 14:22 Troponin High Sensitivity+C.LAB.BRZ ordered. EDMS EDMS 14: 14:22 Urinalysis+U.LAB.BRZ ordered. EDMS EDMS 14: 14:23 Head Brain Wo Cont+CT.RAD.BRZ ordered. EDMS EDMS 14: 14:23 Chest Single View+RAD.RAD.BRZ ordered. EDMS EDMS 14: 14:23 Neck Angio+CT.RAD.BRZ ordered. EDMS EDMS 14: 14:23 Brain Wo Cont+MRI.RAD.BRZ ordered. EDMS EDMS
[2024-03-20 17:23] VITALS: BP 167/76; TEMP 97.3; O2SAT 98
--- NOTE | 2024-03-24 09:05 | EKG ---
Test Date: 2024-03-20 Test Time: 16:09:43 [employer] Installer: NUBIA MEASUREMENT RESULTS: Intervals: Rate: 68 ID: [id number] QRSD: 90 QT: 446 QTc: 474 [place]: P: 54 ID: [id number] QRS: -35 T: 107 INTERPRETIVE STATEMENTS: Sinus rhythm with fusion complexes Left axis deviation Nonspecific ST and T wave abnormality Prolonged QT Abnormal ECG Compared to ECG 01/14/2020 18:49:50 Fusion complex(es) now present Left-axis deviation now present ST (T wave) deviation now present Electronically Signed On 03-24-24 09:05:01 CDT by Michele Park
== END 2024-03-20 17:03 | disposition home or self-care (01) ==
LOC: ER 13:57
DX: R42 Dizziness and giddiness (principal); I10 Essential (primary) hypertension
CPT/HCPCS: 85025; 80048; 36415; 83735; 85610; 82565; 80076; 85730; 81003; 84484; 70450; 70496; 70498; 71045; 70551; 96360; 99284; Q9967; J8597; J7040; 93005

== ENCOUNTER 2024-11-11 08:53 | Emergency (ER) | payer OTHER ==
[2024-11-11 09:23] LABS: Absolute Basophils 0.1 K/uL (0-0.5); Absolute Eosinophils 0.1 K/uL (0-0.5); Absolute Lymphocytes (CBC) 1.6 K/uL (0.7-4.9); Absolute Monocytes 0.3 K/uL (0.1-1.3); Absolute Neutrophil 4.2 K/uL (1.8-8.0); Basophils % 0.9 % (0-1.3); Eosinophils % 1.6 % (0-4.4); Hematocrit 43.5 % (36.0-45.0); Hemoglobin 14.3 g/dL (12.0-15.0); Lymphocytes % 25.1 % (15.3-44.8); MCH 28.2 pg (27.0-35.0); MCHC 32.9 g/dL (32.0-36.0); MCV 85.7 fL (80-100); Monocytes % 5.1 % (3.3-12.3); Neutrophils % 67.3 % (41.7-73.7); Nucleated Red Blood Cells % 0.2 % (0-0); Platelets 241 thou/uL (152-406); RBC Red Blood Cell Count 5.08 M/uL (3.86-4.86)
[2024-11-11 09:30] LABS: PTT, Activated Partial Thromb 31.4 SECONDS (24.3-36.9); Protime INR 0.96
--- NOTE | 2024-11-11 09:39 | RAD REPORT ---
EXAM: CT Ct Stroke Brain Wo Cont HISTORY: STROKE ALERT. Arm numbness at 0800 hours. Hypertension COMPARISON: 03/20/2024 TECHNIQUE: Multiple contiguous axial images were obtained for a CT of the brain without contrast. Sag ittal and coronal reformats were performed. One or more of the following dose reduction techniques were used: Automated exposure control, adjus tment of the mA and kV according to patient size, and iterative reconstruction. Unless otherwise specified, incidental findings do not require dedicated imaging follow-up. FINDINGS: No evidence of hydrocephalus, intracranial hemorrhage, or extra-axial fluid collection. The brain is normal in morphology. The calvarium is intact. The visualized paranasal sinuses and mastoid air cells are essentially clear . IMPRESSION: No evidence of acute intracranial abnormality. THIS REPORT CONTAINS FINDINGS THAT MAY BE CRITICAL TO PATIENT CARE. The findings were verbally commun icated via telephone to Vel Joy on 11/11/2024 9:35 AM.
--- NOTE | 2024-11-11 09:42 | RAD REPORT ---
EXAMINATION: CTA HEAD CLINICAL INDICATION: Female, 69 years old. hand numbness TECHNIQUE: Axial CT images were obtained through the head after intravenous contrast utilizing angiog raphic protocol with 3D post-processing (maximum intensity projection images, volume rendered images and/or shaded surface rendered images). One or more of the following dose reduction technique s were used: Automated exposure control, adjustment of the mA and/or kV according to patient size, and/or iterative reconstruction. Unless otherwise specified, incidental findings do not require dedic ated imaging follow-up. COMPARISON: 03/20/2024 FINDINGS: ICA: The petrous, cavernous, and supraclinoid segments of the bilateral internal carotid arteries are normal. KARINA: Anterior cerebral arteries are normal bilaterally. The anterior communicating artery is patent. MCA: Middle cerebral arteries are normal bilaterally. BANK CREDIT CARD COLLECTION CLERK: Posterior cerebral arteries are normal bilaterally. Vertebrobasilar: The vertebral arteries are patent. The basilar artery is normal in appearance. 3D images confirm these findings. IMPRESSION: No evidence of large vessel occlusion or critical stenosis.
--- NOTE | 2024-11-11 09:45 | RAD REPORT ---
EXAMINATION: CT Neck Angio CLINICAL INDICATION: Female, 69 years old. [facility] hand numbness Bed Name: 4 TECHNIQUE: Axial CT images were obtained from the aortic arch to the skull base after intravenous con trast utilizing angiographic protocol. Multiplanar reformats, as well as 3D post-processing (maximum intensity projection images, volume rendered images and/or shaded surface rendered images) w ere generated and reviewed. One or more of the following dose reduction techniques were used: Automated exposure control, adjustment of the mA and/or kV according to patient size, and/or iterativ e reconstruction. Unless otherwise specified, incidental findings do not require dedicated imaging follow-up. COMPARISON: 03/20/2024 FINDINGS: AORTA: The imaged aortic arch is normal. Normal three-vessel configuration of the arch. CCA: No artifact The common carotid arteries are patent and normal in caliber. ICA/ECA: Bilateral external carotid arteries are patent. Mild bilateral atherosclerotic plaque at the carotid bulbs. No significant left ICA stenosis. Tortuosity and focal kink of the proximal right ICA, with narrowest luminal diameter 2.9 mm seen on series 502 image 108, compared to luminal diamete r 4.3 mm more distally, amounting to 33% stenosis. There is no significant stenosis of the more distal right ICA. VERTEBRAL: The cervical vertebral arteries are patent to the skull base. Vertebral arteries are codom inant. SOFT TISSUE: No significant neck soft tissue abnormalities. The visualized lung apices are clear. Straightening of normal cervical lordosis with sequelae of bone cage fusion at C3-4 and anterior plat ing at C5-C7. Sequelae of prior fusion along the C4-C6 segment as well. 3D images confirm these findings. IMPRESSION: Focal kinking due to tortuosity along the proximal right ICA, resulting in 33% stenosis, probably not hemodynamically significant. No other significant flow abnormality of the neck vessels is identified. NASCET criteria used to quantify ICA stenosis, with the following grading scheme: Mild 0-49% stenosis Moderate 50-69% stenosis Severe 70-99% stenosis Reference: [place] Symptomatic Carotid Endarterectomy Trial Collaborators; Minal GARCIA, Lexi HASSAN, Pete RB, et al. Beneficial effect of carotid endarterectomy in symptomatic patients with high-grade carotid stenosis. N Engl J Med. 1990 15;325(7):445-53.
[2024-11-11 10:32] LABS: ALT/SGPT 16 U/L (13-56); AST/SGOT 12 U/L (15-37); Alkaline Phosphatase 68 U/L (45-117); Anion Gap 9.5 mEq/L (5.0-15.0); BUN Blood Urea Nitrogen 11 mg/dL (7-18); Bicarbonate 26 mEq/L (21-32); Bilirubin Direct < 0.2 mg/dL (0-0.2); Bilirubin Indirect, Calculated 0.3 mg/dL (0.2-0.8); Bilirubin Total 0.5 mg/dL (0.2-1.0); Glomerular Filtration Rate 103 ml/min (=/>90); Glucose Level 93 mg/dL (74-106); Potassium 3.5 mEq/L (3.5-5.1); Sodium Level 138 mEq/L (136-145)
--- NOTE | 2024-11-11 10:40 | RAD REPORT ---
EXAMINATION: ONE VIEW CHEST XR CLINICAL INDICATION: Female, 69 years old.,hand numbness TECHNIQUE: Frontal chest projection is submitted. Examination is limited by patient positioning and t echnique. COMPARISON: 03/20/2024 FINDINGS: The lungs are well inflated and clear. No pneumothorax or sizable effusion. The heart is normal in s ize. Mediastinal contours are unremarkable. IMPRESSION: No acute intrathoracic abnormalities.
--- NOTE | 2024-11-11 11:30 | ER ---
Nurse's Notes [facility] – [place], [place] Name: Yolande Welch Age: 69 yrs Sex: Female : 1955 Arrival Date: 11/11/2024 Time: 08:53 Bed 4 Private MD: Diagnosis: Elevated blood-pressure reading, without diagnosis of hypertension;Paresthesia of bilateral hands Presentation: 11/11 09:09 Chief complaint: Patient states: she started having a numbness and tingly feeling in ap3 BOTH hands and wrists since approx 0749 this morning, and reports that her blood pressure was reading high at home. Coronavirus screen: At this time, the client does not indicate any symptoms associated with coronavirus-19. Ebola Screen: No symptoms or risks identified at this time. Initial Sepsis Screen: Does the patient meet any 2 criteria? No. Patient's initial sepsis screen is negative. Does the patient have a suspected source of infection? No. Patient's initial sepsis screen is negative. Risk Assessment: Do you want to hurt yourself or someone else? Patient reports no desire to harm self or others. Onset of symptoms was November 11, 2024 at 07:49. 09:09 Method Of Arrival: Wheelchair ap3 09:09 Acuity: ELLIE 3 ap3 Triage Assessment: 09:13 General: Appears in no apparent distress. Behavior is calm, cooperative, anxious. Pain: ap3 Complains of pain in back and neck Pain currently is 3 out of 10 on a pain scale. Neuro: Level of Consciousness is awake, alert, obeys commands, Oriented to person, place, time, situation. Neuro: Reports numbness and tingly feeling in both hands/wrists. Cardiovascular: Patient's skin is warm and dry. Respiratory: Airway is patent Respiratory effort is even, unlabored, Respiratory pattern is regular, symmetrical. Historical: - Allergies: 09:12 Strawberries; ap3 - PMHx: 09:12 Hypercholesterolemia; Hypertensive disorder; spinal cord injury; ap3 - Immunization history:: Client reports receiving the 2nd dose of the Covid vaccine, Flu vaccine is not up to date. - Infectious Disease History:: Denies. - Social history:: Smoking status: Patient denies any tobacco usage or history of. - Family history:: not pertinent. Screenin:14 [facility] ED Fall Risk Assessment (Adult) History of falling in the last 3 months, ap3 including since admission No falls in past 3 months (0 pts) Confusion or Disorientation No (0 pts) Intoxicated or Sedated No (0 pts) Impaired Gait Yes (1 pt) Mobility Assist Device Used Yes (1 pt) Altered Elimination No (0 pt) Score/Fall Risk Level 0 - 2 = Low Risk Oriented to surroundings, Maintained a safe environment, Educated pt \T\ family on fall prevention, incl call for assistance when getting out of bed, Assessed \T\ reinforced patient's understanding of fall precautions, Hourly rounding (assess needs \T\ fall precautionary measures) done, Used ambulatory aids as needed (educated on \T\ assisted with). Abuse screen: Denies threats or abuse. Nutritional screening: No deficits noted. Tuberculosis screening: No symptoms or risk factors identified. Assessment: 11:59 General: Appears in no apparent distress. comfortable, Behavior is calm, cooperative, ld1 appropriate for age. Pain: Denies pain. Neuro: Level of Consciousness is awake, alert, obeys commands, Oriented to person, place, time, situation, Appropriate for age. Cardiovascular: Capillary refill < 3 seconds Patient's skin is warm and dry. Respiratory: Airway is patent Respiratory effort is even, unlabored. GI: Abdomen is round non-distended. : No signs and/or symptoms were reported regarding the genitourinary system. EENT: No signs and/or symptoms were reported regarding the EENT system. Derm: No signs and/or symptoms reported regarding the dermatologic system. Musculoskeletal: No signs and/or symptoms reported regarding the musculoskeletal system. Vital Signs: 09:09 BP 143 / 85; Pulse 65; Resp 18; Temp 98.5; Pulse Ox 100% ; Weight 81.19 kg; Height 6 ap3 ft. 0 in. ; Pain 3/10; 11:59 BP 153 / 76; Pulse 71; Resp 18; Pulse Ox 100% on R/A; ld1 09:09 Body Mass Index 24.28 (81.19 kg, 182.88 cm) ap3 09:09 Pain Scale: Adult ap3 ED Course: 08:58 Patient arrived in ED. cj3 08:59 Brenden Lora MD is Attending Physician. rt 09:00 Krunal Vaz RN is Primary Nurse. bp 09:12 Triage completed. ap3 09:12 Initial lab(s) drawn, by me, sent to lab. EKG done, by ED staff, reviewed by Brenden Lora MD. Inserted saline lock: 20 gauge in left forearm, using aseptic technique. Blood collected. Flushed with 10 mL NS. 09:14 Arm band placed on right wrist. ap3 09:28 CT Head Angio In Process Unspecified. EDMS 09:28 CT Neck Angio In Process Unspecified. EDMS 09:28 CT Stroke Brain w/o Contrast In Process Unspecified. EDMS 09:33 Stroke CXR 1 View In Process Unspecified. EDMS 11:59 No provider procedures requiring assistance completed. IV discontinued, intact, ld1 bleeding controlled, No redness/swelling at site. 12:01 Patient has correct armband on for positive identification. Placed in gown. Bed in low ld1 position. Call light in reach. Side rails up X2. Pulse ox on. NIBP on. Door closed. Noise minimized. Warm blanket given. Administered Medications: No medications were administered Medication: 12:01 VIS not applicable for this client. ld1 Outcome: 11:30 Discharge ordered by . rt 12:00 Discharged to home via wheelchair, ld1 12:00 Condition: stable 12:00 Discharge instructions given to patient, Instructed on discharge instructions, follow up and referral plans. Demonstrated understanding of instructions, follow-up care, 12:01 Patient left the ED. ld1 Signatures: Dispatcher [employer] Krunal Giles RN RN bp Prokisch, Amanda, RN RN ap3 Moon Corona RN RN ld1 Brenden Lora MD MD rt Nadya Bishop 3
--- NOTE | 2024-11-11 11:30 | EDPHYS ---
Physician Documentation [facility] Name: Yolande Welch Age: 69 yrs Sex: Female : 1955 Arrival Date: 11/11/2024 Time: 08:53 Bed 4 Private MD: ED Physician Brenden Lora HPI: 11/11 15:14 This 69 yrs old Female presents to ER via Wheelchair with complaints of High Blood rt Pressure, Numbness Of Arm. 09:18 Patient with previous history of STI presents to the ED with tingling in both of the rt hands and generally not feeling well. She had associated nausea but no chest pain. The patient reports that she woke up feeling well, checked her blood pressure and noted that it was high, but Did not give specific number. States that the symptoms have waxed and waned. Denies new weakness. Denies other acute complaints, symptoms are moderate in severity, no other aggravating or alleviating factors.. Historical: - Allergies: 09:12 Strawberries; ap3 - PMHx: 09:12 Hypercholesterolemia; Hypertensive disorder; spinal cord injury; ap3 - Immunization history:: Client reports receiving the 2nd dose of the Covid vaccine, Flu vaccine is not up to date. - Infectious Disease History:: Denies. - Social history:: Smoking status: Patient denies any tobacco usage or history of. - Family history:: not pertinent. ROS: 09:18 Constitutional: Negative for fever, chills, and weight loss, Cardiovascular: Negative rt for chest pain, palpitations, and edema, Respiratory: Negative for shortness of breath, cough, wheezing, and pleuritic chest pain, MS/Extremity: Negative for injury and deformity, Skin: Negative for injury, rash, and discoloration, 09:18 Abdomen/GI: Positive for nausea, Negative for abdominal pain, 09:18 Neuro: Positive for numbness, tingling, Exam: 09:18 Constitutional: This is a well developed, well nourished patient who is awake, alert, rt and in no acute distress. Head/Face: Normocephalic, atraumatic. Chest/axilla: Normal chest wall appearance and motion. Nontender with no deformity. No lesions are appreciated. Cardiovascular: Regular rate and rhythm with a normal S1 and S2. No gallops, murmurs, or rubs. Normal PMI, no JVD. No pulse deficits. Respiratory: Lungs have equal breath sounds bilaterally, clear to auscultation and percussion. No rales, rhonchi or wheezes noted. No increased work of breathing, no retractions or nasal flaring. Abdomen/GI: Soft, non-tender, with normal bowel sounds. No distension or tympany. No guarding or rebound. No evidence of tenderness throughout. Skin: Warm, dry with normal turgor. Normal color with no rashes, no lesions, and no evidence of cellulitis. 09:18 ECG was reviewed by the Attending Physician. 09:18 Neuro: Speech normal, cranial nerves II through XII intact, strength and sensation intact throughout upper extremities, has chronic flexion contracture at the knees, however, hip flexion is intact, sensation is intact in bilateral lower extremities. No visual field deficits, Vital Signs: 09:09 BP 143 / 85; Pulse 65; Resp 18; Temp 98.5; Pulse Ox 100% ; Weight 81.19 kg; Height 6 ap3 ft. 0 in. ; Pain 3/10; 11:59 BP 153 / 76; Pulse 71; Resp 18; Pulse Ox 100% on R/A; ld1 09:09 Body Mass Index 24.28 (81.19 kg, 182.88 cm) ap3 09:09 Pain Scale: Adult ap3 MDM: 09:01 Medical Screening Exam initiated rt 15:14 Differential diagnosis: Hypertension, paresthesia. Data reviewed: vital signs, nurses rt notes, lab test result(s), EKG, radiologic studies. Consideration of Admission/Observation Escalation of care including admission/observation considered. Patient has bilateral paresthesias, states that she has had this previously secondary to her spinal cord injury. I have a low suspicion that the patient is having acute ischemic event. CT scans are unremarkable. Do not believe that 30% stenosis is significant. Stable for outpatient care, return precautions discussed. I considered the following discharge prescriptions or medication management in the emergency department Medications were administered in the Emergency Department. See MAR. Independent interpretation of the following test(s) in the Emergency Department CT Scan: My interpretation is No intracranial hemorrhage seen on my interpretation of CT scan images. Care significantly affected by the following chronic conditions: Hypertension. Counseling: I had a detailed discussion with the patient and/or guardian regarding the historical points, exam findings, and any diagnostic results supporting the discharge/admit diagnosis, lab results, radiology results, to return to the emergency department if symptoms worsen or persist or if there are any questions or concerns that arise at home. Response to treatment: the patient's symptoms have markedly improved after treatment. 11/11 09:09 Order name: Basic Metabolic Panel; Complete Time: 10:33 rt 11/11 09:09 Order name: CBC with Diff; Complete Time: 10:33 rt 11/11 09:09 Order name: Hepatic Function; Complete Time: 10:33 rt 11/11 09:09 Order name: High Sensitivity Troponin; Complete Time: 10:33 rt 11/11 09:09 Order name: Protime (+inr); Complete Time: 10:33 rt 11/11 09:09 Order name: Ptt, Activated; Complete Time: 10:33 rt 11/11 09:09 Order name: CT Head Angio; Complete Time: 10:33 rt 11/11 09:09 Order name: CT Neck Angio; Complete Time: 10:33 rt 11/11 09:09 Order name: CT Stroke Brain w/o Contrast; Complete Time: 10:33 rt 11/11 09:09 Order name: Stroke CXR 1 View; Complete Time: 10:40 rt 11/11 09:09 Order name: Accucheck; Complete Time: 09:11 rt 11/11 09:09 Order name: Cardiac monitoring; Complete Time: 09:11 rt 11/11 09:09 Order name: EKG - Nurse/Tech; Complete Time: 09:11 rt 11/11 09:09 Order name: IV Saline Lock; Complete Time: 09:11 rt 11/11 09:09 Order name: Labs collected and sent; Complete Time: 09:11 rt 11/11 09:09 Order name: NPO; Complete Time: :11 rt 11/11 09:09 Order name: O2 Per Protocol; Complete Time: :11 rt 11/11 09:09 Order name: O2 Sat Monitoring; Complete Time: :11 rt 11/11 09:09 Order name: Stroke Swallow Screen; Complete Time: : rt 11/11 09:25 Order name: Labs - recollect needed: recollect green top; Complete Time: 09:43 bd EC:18 Rate is 75 beats/min. Rhythm is regular, Normal Sinus Rhythm with No ectopy. Left axis rt deviation noted. NH interval is normal. QRS interval is normal. QT interval is normal. No Q waves. T waves are Normal. No ST changes noted. Interpreted by me. Administered Medications: No medications were administered Disposition Summary: 11/11/24 11:30 Discharge Ordered Notes: Location: Home rt Problem: new rt Symptoms: have improved rt Condition: Stable rt Diagnosis - Elevated blood-pressure reading, without diagnosis of hypertension rt - Paresthesia of bilateral hands rt Followup: rt - With: Private Physician - When: 2 - 3 days - Reason: Discharge Instructions: - Discharge Summary Sheet rt - Hypertension, Adult rt - Paresthesia rt Forms: - Medication Reconciliation Form rt - Antibiotic Education rt - Prescription Opioid Use rt - Patient Portal Instructions rt - Leadership Thank You Letter rt Signatures: Dispatcher [employer] EDMS Yolande Hensley Amanda RN RN ap3 Brenden Lora MD MD rt Corrections: (The following items were deleted from the chart) 09:10 09:10 Neck Angio+CT.RAD.BRZ ordered. EDMS EDMS 09:10 09:10 CT-STROKE BRAIN W/O CONTRAST+CT.RAD.BRZ ordered. EDMS EDMS 09:10 09:10 Chest Single View+RAD.RAD.BRZ ordered. EDMS EDMS
[2024-11-11 12:07] VITALS: BP 153/76; TEMP 98.5; O2SAT 100
--- NOTE | 2024-11-12 16:49 | EKG ---
Test Date: 2024-11-11 Test Time: 09:06:08 Traffic Officer: BP MEASUREMENT RESULTS: Intervals: Rate: 75 FL: 162 QRSD: 96 QT: 418 QTc: 466 Cullen: P: 76 FL: 162 QRS: -37 T: 60 INTERPRETIVE STATEMENTS: Normal sinus rhythm Left axis deviation Abnormal ECG Compared to ECG 03/20/2024 16:10:24 ST (T wave) deviation no longer present Electronically Signed On 11-12-24 16:45:26 RESOURCES REPRESENTATIVE by Michele Park
== END 2024-11-11 12:01 | disposition home or self-care (01) ==
LOC: ER 08:53
DX: I10 Essential (primary) hypertension (principal); R20.2 Paresthesia of skin; R11.0 Nausea; E78.00 Pure hypercholesterolemia, unspecified
CPT/HCPCS: 85025; 80048; 36415; 85610; 80076; 85730; 84484; 70496; 70498; 70450; 71045; Q9967; 82565; 93005; 99284